=== PATIENT | male | born 1940 | race African-American/Black ===

== ENCOUNTER 2017-06-26 06:49 | Emergency (ER) | payer MEDICARE, MEDICAID ==
[~2017-06-26] VITALS: Ht 167.6 cm; Wt 68.2 kg
[~2017-06-26 06:49] MED LIST: CLOP75 PO; ENAL20TA PO; PHEN100 PO; ZOCO40TA PO
[2017-06-26 06:54] VITALS: BP 145/78; PULSE 79; RESP 14; TEMP 98.6; O2SAT 99
--- NOTE | 2017-06-26 07:06 | PD ---
HPI Chief Complaint: Seizure Time Seen by Provider: 06:55 Travel History International Travel<30 days: No Contact w/Intl Traveler<30days: No Traveled to known affect area: No History of Present Illness HPI 76yo M with PMH of seizure disorder on dilantin presents to the ED with c/o seizure last night. Pt is noncompliant with his dilantin and sometimes takes it and sometimes does not. His gave him dilantin after the seizure last night. Denies any fever, chest pain, sob, n/v, abdominal pain, focal weakness or numbness or tongue biting. Pt had a seizure while in bed. PFSH Past Medical History Hx Anticoagulant Therapy: Yes Blood Disorders: No Heart Rhythm Problems: No Cancer: No Cardiovascular Problems: Yes (HTN) High Cholesterol: Yes Chest Pain: Yes Cerebrovascular Accident: Yes Coronary Artery Disease: Yes Diminished Hearing: No Endocrine: No Gastrointestinal Disorders: Yes GERD: Yes Genitourinary: No Hypertension: Yes Immune Disorder: No Musculoskeletal: No Neurologic: Yes (STROKE 2006) Psychiatric: No Reproductive: No Respiratory: Yes Immunizations Current: No Seizures: Yes Past Surgical History AICD: No Arteriovenous Shunt: No Insulin Pump: No Joint Replacement: No Pacemaker: No Social History Alcohol Use: Yes (3-6 BEER/DAY) Tobacco Use: No Substance Use: No Allergies-Medications (Allergen,Severity, Reaction): Coded Allergies: No Known Allergies (Verified Adverse Reaction, Unknown, 06/26/17) Reported Meds & Prescriptions Reported Meds & Active Scripts Active Reported Zocor (Simvastatin) 40 Mg Tab 40 Mg PO DAILY Dilantin (Phenytoin Extended) 100 Mg Cap 200 Mg PO BID Enalapril (Enalapril Maleate) 20 Mg Tab 20 Mg PO DAILY Plavix (Clopidogrel Bisulfate) 75 Mg Tab 75 Mg PO DAILY Review of Systems Except as stated in HPI: all other systems reviewed are Neg Physical Exam Narrative GENERAL: 76yo M not in distress. SKIN: Focused skin assessment warm/dry. HEAD: Atraumatic. Normocephalic. EYES: Pupils equal and round. EOMI. ENT: No nasal bleeding or discharge. Mucous membranes pink and moist. NECK: Trachea midline. No JVD. No midline cervical spine ttp. CARDIOVASCULAR: Regular rate and rhythm. No murmur appreciated. RESPIRATORY: No accessory muscle use. Clear to auscultation. Breath sounds equal bilaterally. GASTROINTESTINAL: Abdomen soft, non-tender, nondistended. MUSCULOSKELETAL: No obvious deformities. No clubbing. No cyanosis. No edema. NEUROLOGICAL: Awake and alert. No obvious cranial nerve deficits. Motor grossly within normal limits. Normal speech. PSYCHIATRIC: Appropriate mood and affect; insight and judgment normal. Data Data Last Documented VS Vital Signs Date Time Temp Pulse Resp B/P (MAP) Pulse Ox O2 Delivery O2 Flow Rate FiO2 06/26/17 07:02 78 97 Room Air 06/26/17 06:54 98.6 14 145/78 (100) Orders Orders Complete Blood Count With Diff (06/26/17 07:02) Basic Metabolic Panel (Bmp) (06/26/17 07:02) Phenytoin (Dilantin) (06/26/17 07:02) Magnesium (Mg) (06/26/17 07:10) Phenytoin (Dilantin) (06/26/17 08:30) Labs Laboratory Tests Test 06/26/17 07:10 White Blood Count 6.0 TH/MM3 Red Blood Count 4.39 MIL/MM3 Hemoglobin 12.9 GM/DL Hematocrit 40.9 % Mean Corpuscular Volume 93.2 FL Mean Corpuscular Hemoglobin 29.4 PG Mean Corpuscular Hemoglobin Concent 31.5 % Red Cell Distribution Width 12.2 % Platelet Count 211 TH/MM3 Mean Platelet Volume 8.5 FL Neutrophils (%) (Auto) 46.4 % Lymphocytes (%) (Auto) 40.7 % Monocytes (%) (Auto) 7.0 % Eosinophils (%) (Auto) 5.0 % Basophils (%) (Auto) 0.9 % Neutrophils # (Auto) 2.8 TH/MM3 Lymphocytes # (Auto) 2.4 TH/MM3 Monocytes # (Auto) 0.4 TH/MM3 Eosinophils # (Auto) 0.3 TH/MM3 Basophils # (Auto) 0.1 TH/MM3 CBC Comment DIFF FINAL Differential Comment Blood Urea Nitrogen 21 MG/DL Creatinine 1.10 MG/DL Random Glucose 91 MG/DL Calcium Level 8.6 MG/DL Magnesium Level 2.0 MG/DL Sodium Level 136 MEQ/L Potassium Level 4.5 MEQ/L Chloride Level 103 MEQ/L Carbon Dioxide Level 24.7 MEQ/L Anion Gap 8 MEQ/L Estimat Glomerular Filtration Rate 79 ML/MIN Phenytoin (Dilantin) Level 9.1 MCG/ML [facility] Medical Decision Making Medical Screen Exam Complete: Yes Emergency Medical Condition: Yes Differential Diagnosis Seizure secondary to noncompliance vs. infection vs. electrolyte abnormalities Narrative Course 76yo M with seizure disorder with frequent visits for seizure secondary to noncompliance with medications here with another episode of seizure. Pt's came and said he had a seizure that lasted about 1 minute at midnight so she gave him 200mg of dilantin and he was at baseline. However, said he had another seizure at 6am this morning so called [facility]. Denies any head trauma in either episodes and is back at his baseline. Pt admits to not being compliant and did not take his normal dilatin yesterday morning. He is suppose to take 200mg in AM and 200mg in PM. Labs reviewed, no leukocytosis. Magnesium normal. Dilantin level is low at 9.1. Pt given 200mg of dilantin PO here. Pt has been observed in the ED without any seizure. Pt has been back at baseline and denies any complaint. His is at bedside and will accompany him home. Said Dr. Reyes is his neurologist and he has not seen him in quite a while. States he has his dilantin at home and just forgot to take them. Return precautions given. Diagnosis Primary Impression: Seizure Referrals: Yeison Reyes MD call for appointment Patient Instructions: General Instructions Departure Forms: Tests/Procedures Additional Instructions: Please follow up with Dr. Reyes in 2-3 days. Return to the ED if symptoms worsen. Med/Other Pt SpecificInfo: No Change to Meds Disposition: 01 DISCHARGE HOME Condition: Stable Yadi Senior DO Jun 26, 2017 07:06
[2017-06-26] MEDS ORDERED: PLAV75TA29 PO (07:09)
[2017-06-26] MEDS ORDERED: ZOCO40TA PO (07:09)
[2017-06-26] MEDS ORDERED: ENAL20TA PO (07:09)
[2017-06-26] MEDS ORDERED: DILA100C PO (07:09)
[2017-06-26 07:27] LABS: AUTOMATED NEUTROPHIL # 2.8 TH/MM3 (1.8-7.7); BASOPHIL # 0.1 TH/MM3 (0-0.2); BASOPHIL % 0.9 % (0.0-2.0); EOSINOPHIL # 0.3 TH/MM3 (0-0.4); HEMATOCRIT 40.9 % (39.0-51.0); HEMO FLAGS DIFF FINAL; LYMPH % 40.7 % (9.0-44.0); LYMPHOCYTE # 2.4 TH/MM3 (1.0-4.8); MEAN CELL VOLUME 93.2 FL (80.0-100.0); MEAN CORPUSCULAR HEMOGLOBIN 29.4 PG (27.0-34.0); MEAN CORPUSCULAR HGB CONC 31.5 % (32.0-36.0); NEUT % 46.4 % (16.0-70.0); PLATELET COUNT 211 TH/MM3 (150-450); RED BLOOD COUNT 4.39 MIL/MM3 (4.50-5.90); RED CELL DISTRIBUTION WIDTH 12.2 % (11.6-17.2)
[2017-06-26 07:38] LABS: POTASSIUM 4.5 MEQ/L (3.5-5.1)
[2017-06-26 07:40] LABS: BICARBONATE 24.7 MEQ/L (21.0-32.0)
[2017-06-26] MEDS ORDERED: PHENYTOIN SODIUM 100 MG CAP PO ONE (08:30)
[2017-06-26 08:37] VITALS: BP 152/81; PULSE 64; RESP 16; O2SAT 99
== END 2017-06-26 08:56 | disposition home or self-care (01) ==
LOC: PHED 06:49
DX: G40.909 Epilepsy, unspecified, not intractable, without status epilepticus (principal); I10 Essential (primary) hypertension; I25.10 Atherosclerotic heart disease of native coronary artery without angina pectoris; Z79.899 Other long term (current) drug therapy
CPT/HCPCS: 80048; 80185; 83735; 85025; 99283

== ENCOUNTER 2018-05-01 14:56 | Observation (INO) ==
--- NOTE | 2018-05-01 15:11 | CT ---
EXAM DATE: 05/01/2018 3:05 PM EDT AGE/SEX: 77 years / Male INDICATIONS: Stroke alert. Right sided upper and lower extremity weakness. Facial droop. CLINICAL DATA: This is the patient's initial encounter. Patient reports that signs and symptoms have been present for 1 day and indicates a pain score of 0/10. MEDICAL/SURGICAL HISTORY: None. . Seizures. RADIATION DOSE: 59.41 CTDI (mGy) COMPARISON: [facility], CT BRAIN W/O CONTRAST, 06/27/2015. . TECHNIQUE: CT of the head without contrast. Using automated exposure control and adjustment of the mA and/or kV according to patient size, radiation dose was kept as low as reasonably achievable to ob tain optimal diagnostic quality images. DICOM format image data is available electronically for revi ew and comparison. FINDINGS: No signs of acute infarct, hemorrhage or mass. Patchy periventricular white matter disease is again s een and stable compared to 2015 exam. There are no fractures. Ventricles and cisterns are of normal s ize and configuration. CONCLUSION: 1. Stable appearance of the brain. No acute findings. Report was called by [Dr. Reed to Dr. King at 3:06 PM on May 01, 2018. ] Electronically signed by: Estiven Reed MD 05/01/2018 3:10 PM EDT
--- NOTE | 2018-05-01 15:27 | ED ---
HPI General Chief complaint: Stroke Alert Stated complaint: stroke alert Time Seen by Provider: 05/01/18 15:10 History of Present Illness HPI narrative: Patient is a 77 year old male last seen normal around 2 hours ago presents to the ER for evaluation of altered mental status. Patient has a history of stroke and seizure. Patient first noticed by his significant other about an hour ago having trouble speaking. She states she was sitting next to him on the couch and that's when she noticed it. She states that he did not have any seizure disorder. Otherwise he had been well before today. No chest pain, no fever, no cough, no congestion. Related Data Home Medications Medication Instructions Recorded Confirmed clopidogrel 75 mg PO DAILY 05/01/18 05/01/18 enalapril maleate 20 mg PO DAILY 05/01/18 05/01/18 montelukast 10 mg PO HS 05/01/18 05/01/18 phenytoin 200 mg PO BID 05/01/18 05/01/18 simvastatin 40 mg PO DAILY 05/01/18 05/01/18 Allergies Allergy/AdvReac Type Severity Reaction Status Date / Time No Known Allergies Allergy Unverified 05/01/18 15:03 Review of Systems ROS: all other systems reviewed are negative [facility] Medical History Medical History History of CVA (cerebrovascular accident) (Acute) Hx of tonic-clonic seizures (Acute) Hx of primary hypertension (Acute) History of high cholesterol (Acute) Surgical History Surgical History No history of previous surgery (Acute) Social History Social History Substance History: No History of Abuse Second Hand Smoke Exposure: No Smoking Status: Never smoker How Often Do You Have a Drink Containing Alcohol: 4 or more times a week Recent Travel in [facility] within the Last 8 Weeks: No Recent Out of Country Travel within the Last 8 Weeks: No Exam Narrative Exam Narrative: GENERAL: WD/WN in nad. SKIN: Focused skin assessment warm/dry. HEAD: Atraumatic. Normocephalic. EYES: Pupils equal and round. No scleral icterus. No injection or drainage. ENT: No nasal bleeding or discharge. Mucous membranes pink and moist. NECK: Trachea midline. No JVD. CARDIOVASCULAR: Regular rate and rhythm. No murmur appreciated. RESPIRATORY: No accessory muscle use. Clear to auscultation. Breath sounds equal bilaterally. GASTROINTESTINAL: Abdomen soft, non-tender, nondistended. Hepatic and splenic margins not palpable. MUSCULOSKELETAL: No obvious deformities. No clubbing. No cyanosis. No edema. NEUROLOGICAL: Awake and alert. Patient's major deficit is speech, dysarthric and dysphasic. Patient has possible small loss of strength in the right sided extremities upper and lower. Probably 4/5 strength. Total NIH is 5. PSYCHIATRIC: Appropriate mood and affect; insight and judgment normal. Course Initial Documented Vital Signs Temperature 98.2 F 05/01/18 15:00 Pulse Rate 88 05/01/18 15:00 Respiratory Rate 16 05/01/18 15:00 Blood Pressure 176/96 H 05/01/18 15:00 Pulse Oximetry 95 05/01/18 15:00 Last Documented Vital Signs Temperature 98.2 F 05/01/18 15:00 Pulse Rate 72 05/01/18 17:43 Respiratory Rate 16 05/01/18 17:43 Blood Pressure 149/70 H 05/01/18 17:43 Pulse Oximetry 95 05/01/18 17:43 Critical Care Time Critical Care Time: Yes Total Critical Care Time: 35 Attestation: Critical care time with this patient is 35 mins. Discussed with 3 physicians, family, nurses. Billable procedure time was not included in this time. Medical Decision Making MDM Narrative Medical decision making narrative: Patient taken directly to CT on arrival. He has no labs, no VS. Taken back to ER for further evaluation. Patient is very dysarthric and somewhat aphasic as well. Unable to demonstrate insight or judgement and unable to make his own decisions. Patient's "" arrives abbey cheek. She is waivering on the decision for TPA. She cannot give me any other family members who can consent for him. She is not his legal nor does she have POA. She can therefore not make decision for him. She states that his speech is improving anyways. CT head negative. Will be going back for CTA. Then transport to [facility]. Patient difficult IV stick, i have started US guided IV in the right AC. There was some delay for creatinine in this patient but ultimately went for CTA which should no acute occlusion. He was seen by Dr. Reaves and reevaluated by me during CTA and has now resolved. Initially plan was to go to [facility] incase there was occlusion so that he could have intervention if neccessary. However now that CTA negative and patient symptoms resolved it was felt by myself and Dr. Lipscomb that he could be downgraded to floor at [facility] for TIA. Medical Screen Exam Complete: Yes Emergency Medical Condition: Yes Lab Data Result diagrams: 05/01/18 15:28 05/01/18 15:28 Lab Results 05/01/18 05/01/18 05/01/18 Range/Units 15:25 15:28 15:28 CBC w Diff Auto diff final WBC 5.5 (4.0-11.0) th/mm3 RBC 3.82 L (4.50-5.90) mil/mm3 Hgb 12.3 L (13.0-17.0) gm/dL Hct 36.3 L (39.0-51.0) % MCV 95.0 (80.0-100.0) fL MCH 32.2 (27.0-34.0) pg MCHC 33.9 (32.0-36.0) % RDW 12.4 (11.6-17.2) % Plt Count 167 (150-450) th/mm3 MPV 8.3 (7.0-11.0) fL Neut % (Auto) 54.4 (16.0-70.0) % Lymph % (Auto) 33.6 (9.0-44.0) % [place] % (Auto) 8.3 H (0.0-8.0) % Eos % (Auto) 2.8 (0.0-4.0) % Baso % (Auto) 0.9 (0.0-2.0) % Neut # (Auto) 3.0 (1.8-7.7) th/mm3 Lymph # (Auto) 1.8 (1.0-4.8) th/mm3 [place] # (Auto) 0.5 (0.0-0.9) th/mm3 Eos # (Auto) 0.2 (0.0-0.4) th/mm3 Baso # (Auto) 0.0 (0.0-0.2) th/mm3 WBC Differential . Differential Comment . PT (9.8-11.6) sec INR Ratio APTT (24.3-30.1) sec Sodium (136-145) meq/L Potassium (3.5-5.1) meq/L Chloride (98-107) meq/L Carbon Dioxide (21.0-32.0) meq/L Anion Gap (5-15) meq/L BUN (7-18) mg/dL Creatinine (0.60-1.30) mg/dL Estimated GFR (>89) mL/min Random Glucose (74-106) mg/dL Calcium (8.5-10.1) mg/dL Total Bilirubin (0.2-1.0) mg/dL AST (15-37) U/L ALT (12-78) U/L Alkaline Phosphatase (45-117) U/L Troponin I (0.02-0.05) ng/mL Total Protein (6.4-8.2) g/dL Albumin (3.4-5.0) g/dL TSH Cancelled Urine Color (Yellw/Straw) Urine Clarity (Clear) Urine pH (5.0-8.5) Ur Specific [place] (1.002-1.035) Urine Protein (Neg-Trace) mg/dL Urine Glucose (UA) (Negative) mg/dL Urine Ketones (Negative) mg/dL Urine Occult Blood (Negative) Urine Nitrate (Negative) Urine Bilirubin (Negative) Urine Urobilinogen (Less than 2) mg/dL Ur Leukocyte Esterase (Negative) Urine RBC (0-3) /hpf Urine WBC (0-5) /hpf Ur Squamous Epith Cells (0-5) /hpf Micro UA Comment Ur Microscopic Review Urine Culture Comments Phenytoin 13.5 (10.0-20.0) mcg/mL Blood Type A Positive Blood Type Recheck Required Antibody Screen Negative 05/01/18 05/01/18 05/01/18 Range/Units 15:28 15:28 17:30 CBC w Diff WBC (4.0-11.0) th/mm3 RBC (4.50-5.90) mil/mm3 Hgb (13.0-17.0) gm/dL Hct (39.0-51.0) % MCV (80.0-100.0) fL MCH (27.0-34.0) pg MCHC (32.0-36.0) % RDW (11.6-17.2) % Plt Count (150-450) th/mm3 MPV (7.0-11.0) fL Neut % (Auto) (16.0-70.0) % Lymph % (Auto) (9.0-44.0) % Berks % (Auto) (0.0-8.0) % Eos % (Auto) (0.0-4.0) % Baso % (Auto) (0.0-2.0) % Neut # (Auto) (1.8-7.7) th/mm3 Lymph # (Auto) (1.0-4.8) th/mm3 [place] # (Auto) (0.0-0.9) th/mm3 Eos # (Auto) (0.0-0.4) th/mm3 Baso # (Auto) (0.0-0.2) th/mm3 WBC Differential Differential Comment PT 11.4 (9.8-11.6) sec INR 1.1 Ratio APTT 26.2 (24.3-30.1) sec Sodium 137 (136-145) meq/L Potassium 4.1 (3.5-5.1) meq/L Chloride 101 (98-107) meq/L Carbon Dioxide 27.6 (21.0-32.0) meq/L Anion Gap 8 (5-15) meq/L BUN 13 (7-18) mg/dL Creatinine 1.10 (0.60-1.30) mg/dL Estimated GFR 78 L (>89) mL/min Random Glucose 93 (74-106) mg/dL Calcium 8.0 L (8.5-10.1) mg/dL Total Bilirubin 0.2 (0.2-1.0) mg/dL AST 15 (15-37) U/L ALT 19 (12-78) U/L Alkaline Phosphatase 85 (45-117) U/L Troponin I Less than 0.02 L (0.02-0.05) ng/mL Total Protein 8.0 (6.4-8.2) g/dL Albumin 3.3 L (3.4-5.0) g/dL TSH 1.720 Urine Color Yellow (Yellw/Straw) Urine Clarity Clear (Clear) Urine pH 6.0 (5.0-8.5) Ur Specific [place] Less/equal 1.005 (1.002-1.035) Urine Protein Negative (Neg-Trace) mg/dL Urine Glucose (UA) Negative (Negative) mg/dL Urine Ketones Negative (Negative) mg/dL Urine Occult Blood Trace (Negative) Urine Nitrate Negative (Negative) Urine Bilirubin Negative (Negative) Urine Urobilinogen 1.0 (Less than 2) mg/dL Ur Leukocyte Esterase Negative (Negative) Urine RBC 0-3 (0-3) /hpf Urine WBC 0-5 (0-5) /hpf Ur Squamous Epith Cells 0-5 (0-5) /hpf Micro UA Comment Culture not ind Ur Microscopic Review Microscopic reviewed Urine Culture Comments Culture not ind Phenytoin (10.0-20.0) mcg/mL Blood Type Blood Type Recheck Antibody Screen Imaging Data Radiologist's impression: Chest X-Ray 05/01/18 14:57 CONCLUSION: No acute cardiopulmonary disease. Head CT 05/01/18 14:57 CONCLUSION: 1. Stable appearance of the brain. No acute findings. Report was called by [Dr. Reed to Dr. King at 3:06 PM on May 01, 2018. ] Head CTA 05/01/18 14:57 CONCLUSION: 1. There is nonvisualization of the left anterior communicating artery. No evidence of aneurysm or dissection. The remainder of the vasculature appears normal. Neck CTA 05/01/18 14:57 CONCLUSION: 1. There is minimal calcific plaquing of the bilateral carotid arteries without evidence for hemodynamically significant stenosis or occlusion. Discharge Plan Discharge Disposition Patient Disposition: 30 Still Patient Discharge Details Diagnosis: Brain TIA Physicians Team ED Provider: Enrique King Primary Care Provider: Man Sanchez Status ED Status: Left Department Discharge Information Discharge Date/Time: 05/01/18 18:19
[2018-05-01 15:39] LABS: Baso % (Auto) 0.9 % (0.0-2.0); Eos # (Auto) 0.2 th/mm3 (0.0-0.4); Eos % (Auto) 2.8 % (0.0-4.0); Hematocrit 36.3 % (39.0-51.0); Hemoglobin 12.3 gm/dL (13.0-17.0); Lymph # (Auto) 1.8 th/mm3 (1.0-4.8); Lymph % (Auto) 33.6 % (9.0-44.0); Mean Corpuscular HGB Conc 33.9 % (32.0-36.0); Mean Corpuscular Hemoglobin 32.2 pg (27.0-34.0); Mean Platelet Volume 8.3 fL (7.0-11.0); Mono # (Auto) 0.5 th/mm3 (0.0-0.9); Mono % (Auto) 8.3 % (0.0-8.0); Neut % (Auto) 54.4 % (16.0-70.0); Platelet Count 167 th/mm3 (150-450); Red Blood Count 3.82 mil/mm3 (4.50-5.90); Red Cell Distribution Width 12.4 % (11.6-17.2); White Blood Count 5.5 th/mm3 (4.0-11.0)
--- NOTE | 2018-05-01 15:43 | XR ---
EXAM DATE: 05/01/2018 3:38 PM EDT AGE/SEX: 77 years / Male INDICATIONS: Stroke alert. CLINICAL DATA: This is the patient's initial encounter. Patient reports that signs and symptoms have been present for 1 day and indicates a pain score of Nonresponsive. MEDICAL/SURGICAL HISTORY: None. None. COMPARISON: [facility], CHEST PA & LAT, 11/08/2011. . FINDINGS: A single AP view of the chest demonstrates the lungs to be symmetrically aerated without evidence of mass, infiltrate or effusion. Tortuous aorta which is stable. The cardiomediastinal contours are unr emarkable. Osseous structures are intact. Mild scoliotic curvature of the thoracic spine. CONCLUSION: No acute cardiopulmonary disease. Electronically signed by: Tom Silver MD 05/01/2018 3:42 PM EDT
[2018-05-01 15:46] LABS: Chloride 101 meq/L (98-107); Potassium 4.1 meq/L (3.5-5.1); Sodium 137 meq/L (136-145)
[2018-05-01 15:50] LABS: Albumin 3.3 g/dL (3.4-5.0); Anion Gap 8 meq/L (5-15); Blood Urea Nitrogen 13 mg/dL (7-18); Carbon Dioxide 27.6 meq/L (21.0-32.0); Glucose,Random 93 mg/dL (74-106)
[2018-05-01 15:53] LABS: Alanine Aminotransferase 19 U/L (12-78); Aspartate Aminotransferase 15 U/L (15-37); Glomerular Filtration Rate 78 mL/min (>89)
[2018-05-01 15:56] LABS: Alkaline Phosphatase 85 U/L (45-117)
[2018-05-01 16:09] LABS: Activated Partial Thrombo Time 26.2 sec (24.3-30.1); INR 1.1 Ratio; Prothrombin Time 11.4 sec (9.8-11.6)
--- NOTE | 2018-05-01 16:28 | P.CONNEU ---
History of Present Illness Service: Neurology Primary Care Provider: Man Sanchez DO Family Provider: Man Sanchez DO Chief Complaint: Stroke alert History of Present Illness: Pleasant 77-year-old gentleman brought into the ER for mental status changes. Onset approximately 45 minutes prior to arrival to the ER. His partner is at bedside. During his course in the ER is in a stroke scale score went from 5 to is 0. With improvement in symptoms he is not IV TPA candidate. His partner states his normal state of health this morning when abruptly began with confusion difficulty with speech. Had some emesis. He has a history of seizures and admits that he is noncompliant with his Dilantin. He had a similar episode 6 months ago. States he usually clears after several hours or a day. His history of previous trauma and stroke she states which they believe it resulted him in him having seizures. Denies any current headache vertigo visual loss focal weakness or any head or neck trauma or chest pain or dyspnea. Review of Systems All other systems reviewed negative except as stated in HPI PMFSH - History History Provided By: Family Member - Medical History Medical History: Medical History (Last Updated 05/01/18 @ 15:51 by Maribel López RN) History of CVA (cerebrovascular accident) (Acute) Hx of tonic-clonic seizures (Acute) Hx of primary hypertension (Acute) History of high cholesterol (Acute) - Surgical History Surgical History: Surgical History (Last Updated 05/01/18 @ 15:51 by Maribel López RN) No history of previous surgery (Acute) - Tobacco History Second Hand Smoke Exposure: No Smoking Status: Never smoker - Alcohol History How Often Do You Have a Drink Containing Alcohol: 4 or more times a week - Substance Use History Substance History: No History of Abuse - Travel History Recent Travel in the [place] Within the Last 8 Weeks: No Recent Travel Out of the Country Within the Last 8 Weeks: No - Immunization History Tetanus Immunization: <5 Years Hx Influenza Vaccine This Season: No Medications and Allergies Active Medications: Active Medications Sodium Chloride (Ns Inj) 1,000 mls @ 70 mls/hr IV.CONT .[id number] BOBBY Sodium Chloride (Ns Flush) 2 ml IV.FLUSH PRN PRN PRN Reason: FLUSH AFTER USING IV ACCESS Allergies Allergy/AdvReac Type Severity Reaction Status Date / Time No Known Allergies Allergy Unverified 05/01/18 15:03 Home Medications Medication Instructions Recorded Confirmed Type clopidogrel 75 mg PO DAILY 05/01/18 05/01/18 History enalapril maleate 20 mg PO DAILY 05/01/18 05/01/18 History montelukast 10 mg PO HS 05/01/18 05/01/18 History phenytoin 200 mg PO BID 05/01/18 05/01/18 History simvastatin 40 mg PO DAILY 05/01/18 05/01/18 History Exam Vital signs: Vital Signs 05/01/18 15:00 05/01/18 15:43 05/01/18 15:49 Temperature 98.2 F Pulse Rate 88 Respiratory Rate 16 Blood Pressure 176/96 H Pulse Oximetry 95 96 98 05/01/18 15:59 Temperature Pulse Rate 74 Respiratory Rate 16 Blood Pressure 149/79 H Pulse Oximetry 100 Intake & Output 04/30/18 05/01/18 05/01/18 18:59 06:59 18:59 Weight 73.2 kg Narrative: GENERAL: in NAD, SKIN: Warm and dry. HEAD: Atraumatic. Normocephalic. EYES: Pupils equal and round. No scleral icterus. ENT: No nasal bleeding or discharge. Mucous membranes pink and moist. NECK: Trachea midline. No JVD. CARDIOVASCULAR: Regular rate and rhythm. RESPIRATORY: No accessory muscle use. Clear to auscultation. Breath sounds equal bilaterally. GASTROINTESTINAL: Abdomen soft, non-tender, nondistended. MUSCULOSKELETAL: Extremities without clubbing, cyanosis, or edema. No obvious deformities. NEUROLOGICAL: Mildly drowsy but able to sustain attention no aphasia, fluent articulate, able name simple objects, recognizes his partner no facial asymmetry , OU 3-2mm, eomi, VFF, No drift, Motor grossly within normal limits. Five out of 5 muscle strength in the arms and legs. Tone normal in all 4 limbs, Sensory normal in all 4 extermities to pin, msr 1-2+ sym, no clonus, planterflexor, gait not assessed secondary fall risk PSYCHIATRIC: Appropriate mood and affect; insight and judgment normal. - Constitutional no acute distress - Routine HEENT Exam Head: Present: normocephalic Eye: Present: EOMI Results - Labs CBC & Chem 7: 05/01/18 15:28 05/01/18 15:28 Labs: Laboratory Results - last 24 hr 05/01/18 05/01/18 05/01/18 15:28 15:28 15:28 CBC w Diff Auto diff final WBC 5.5 RBC 3.82 L Hgb 12.3 L Hct 36.3 L MCV 95.0 MCH 32.2 MCHC 33.9 RDW 12.4 Plt Count 167 MPV 8.3 Neut % (Auto) 54.4 Lymph % (Auto) 33.6 [place] % (Auto) 8.3 H Eos % (Auto) 2.8 Baso % (Auto) 0.9 Neut # (Auto) 3.0 Lymph # (Auto) 1.8 [place] # (Auto) 0.5 Eos # (Auto) 0.2 Baso # (Auto) 0.0 WBC Differential . Differential Comment . PT 11.4 INR 1.1 APTT 26.2 Sodium 137 Potassium 4.1 Chloride 101 Carbon Dioxide 27.6 Anion Gap 8 BUN 13 Creatinine 1.10 Estimated GFR 78 L Random Glucose 93 Calcium 8.0 L Total Bilirubin 0.2 AST 15 ALT 19 Alkaline Phosphatase 85 Troponin I Less than 0.02 L Total Protein 8.0 Albumin 3.3 L TSH 1.720 - Imaging Impressions Chest X-Ray 05/01/18 14:57 CONCLUSION: No acute cardiopulmonary disease. Head CT 05/01/18 14:57 CONCLUSION: 1. Stable appearance of the brain. No acute findings. Report was called by [Dr. Reed to Dr. King at 3:06 PM on May 01, 2018. ] Review/Management - Diagnosis (1) Post-traumatic seizures Code(s): R56.1 - Post traumatic seizures Status: Acute Current Visit: Yes (2) History of CVA (cerebrovascular accident) Code(s): Z86.73 - Personal history of transient ischemic attack (TIA), and cerebral infarction without residual deficits Status: Acute Current Visit: Yes (3) Hx of tonic-clonic seizures Code(s): Z86.69 - Personal history of other diseases of the nervous system and sense organs Status: Acute Current Visit: Yes (4) Hx of primary hypertension Code(s): Z86.79 - Personal history of other diseases of the circulatory system Status: Acute Current Visit: Yes - Review/Management Plan: Probable breakthrough seizure with postictal state Suspect complex partial seizure left temporal lobe in origin Recommendations EEG Follow-up Dilantin level Resume Dilantin Aspirin MRI brain follow-up PT eval DC planning in a.m. if no further symptoms Compliance seizure medications Follow-up with us in the outpatient setting in 1-2 weeks Business card given to patient spouse No driving or operating heavy machinery swimming alone 6 months being seizure spell free
[2018-05-01] MEDS ORDERED: Fosphenytoin Inj 1,000 MGPE in Sodium Chlor 0.9% Inj 50 ML IV.SIG ONE (16:29)
--- NOTE | 2018-05-01 16:36 | CT ---
EXAM DATE: 05/01/2018 4:26 PM EDT AGE/SEX: 77 years / Male INDICATIONS: Stroke alert. Right sided upper and lower extremity weakness. Facial droop. CLINICAL DATA: This is the patient's initial encounter. Patient reports that signs and symptoms have been present for 1 day and indicates a pain score of 0/10. MEDICAL/SURGICAL HISTORY: . Seizures. None. RADIATION DOSE: 42.24 CTDI (mGy) ; Combined studies COMPARISON: [facility], CT HEAD W/O CONTRAST, 05/01/2018. . TECHNIQUE: Volumetric scanning was performed using a multi-row detector CT scanner during bolus infu katherin of 100 ml Visipaque 320 (iodixanol) nonionic water-soluble contrast as a cumulative dose for mu ltiple exams. The data was post processed with a variety of visualization algorithms including full volume maximum intensity projection, multi-planar sliding thin slab reformation, curved planar refor mation, and surface rendering techniques. Using automated exposure control and adjustment of the mA and/or kV according to patient size, radiation dose was kept as low as reasonably achievable to obtai n optimal diagnostic quality images. DICOM format image data is available electronically for review and comparison. FINDINGS: There is excellent visualization of the major intracranial arteries out to the second-order branch ve ssels. There is no evidence for aneurysm, or stenosis. There is nonvisualization of the left anterio r communicating artery and the 2 anterior cerebral arteries appear to originate from the right anteri or communicating artery. No evidence for vascular malformation. CONCLUSION: 1. There is nonvisualization of the left anterior communicating artery. No evidence of aneurysm or d issection. The remainder of the vasculature appears normal. Electronically signed by: Kari Barba MD 05/01/2018 4:35 PM EDT
[2018-05-01] MEDS: Sod Chloride 0.9% Inj 1,000 ML IV.CONT SCH (16:46)
--- NOTE | 2018-05-01 16:46 | CT ---
EXAM DATE: 05/01/2018 4:40 PM EDT AGE/SEX: 77 years / Male INDICATIONS: Stroke alert. Right sided upper and lower extremity weakness. Facial droop. CLINICAL DATA: This is the patient's initial encounter. Patient reports that signs and symptoms have been present for 1 day and indicates a pain score of 0/10. MEDICAL/SURGICAL HISTORY: . Seizures. None. RADIATION DOSE: 42.24 CTDI (mGy) ; Combined studies COMPARISON: [facility], CTA HEAD W CONTRAST W 3D, 05/01/2018. [facility], CT HEAD W/O CONTRAST, 05/01/2018. . TECHNIQUE: Volumetric scanning was performed using a multirow detector CT scanner during bolus infus ion of 100 ml Visipaque 320 (iodixanol) nonionic water-soluble contrast as a cumulative dose for mul tiple exams. The data was postprocessed with a variety of visualization algorithms including full-v olume maximum intensity projection, multiplanar sliding thin-slab reformation, curved-planar reformat ion, and surface-rendering techniques. Using automated exposure control and adjustment of the mA and /or kV according to patient size, radiation dose was kept as low as reasonably achievable to obtain o ptimal diagnostic quality images. DICOM format image data is available electronically for review and comparison. Percent stenosis is calculated using the diameter of the stenotic region over the diameter of the nor mal distal internal carotid artery. FINDINGS: Aortic Arch: There is a three-vessel origin of the great vessels from the aorta. No evidence of ost ial narrowing Right Carotid: The common carotid artery is intact. The carotid bulb has a normal configuration wit hout ulceration or narrowing. The internal carotid artery lumen is smooth without stenosis. The ext ernal carotid artery is intact. Left Carotid: The common carotid artery is intact. The carotid bulb has a normal configuration with out ulceration or narrowing. The internal carotid artery lumen is smooth without stenosis. The exte rnal carotid artery is intact. Vertebrals: The vertebral arteries have a symmetric diameter. No stenotic lesions are seen. Basilar artery is diminutive in caliber. CONCLUSION: 1. There is minimal calcific plaquing of the bilateral carotid arteries without evidence for hemodyn amically significant stenosis or occlusion. Electronically signed by: Estiven Reed MD 05/01/2018 4:45 PM EDT
[2018-05-01] MEDS ORDERED: Acetaminophen 325 MG Tablet PO PRN (17:02)
[2018-05-01] MEDS ORDERED: Bisacodyl 10 MG Supp RECTAL PRN (17:02)
[2018-05-01] MEDS: Aspirin 325 MG Tablet PO SCH (17:10)
[2018-05-01 17:32] LABS: Phenytoin (Dilantin) 13.5 mcg/mL (10.0-20.0)
[2018-05-01 17:41] LABS: Bilirubin,Urine Negative (Negative); Clarity,Urine Clear (Clear); Color,Urine Yellow (Yellw/Straw); Glucose,Urine (UA) Negative (Negative); Leukocyte Esterase,Urine Negative (Negative); Nitrite,Urine Negative (Negative); Specific Gravity,Urine Less/Equal 1.005 (1.002-1.035)
[2018-05-01 17:47] LABS: RBC,Urine 0-3 /hpf (0-3)
[2018-05-01 17:48] LABS: Squamous Epithelial Cell,Urine 0-5 /hpf (0-5); WBC,Urine 0-5 /hpf (0-5)
--- NOTE | 2018-05-01 19:24 | P.HP ---
History of Present Illness Service: Hospitalist Primary Care Physician: Man Sanchez DO Chief Complaint: Stroke alert History of Present Illness: Mr. Garcia is a pleasant 77 year old male who was brought to the hospital as a stroke alert. Approximately two hours prior to arrival, he was in his normal state. Approximately, an hour prior to ED arrival, his significant other noticed patient's speech difficulty. He had some confusion as well. By the time he arrived to the hospital, his symptoms resolved. Neurology was consulted. TPA was not administered. Patient denies any chest pain, shortness of breath, fever , chills. No changes in bowel or bladder habits. PMH: Seizure disorder, CVA, HTN PSH: No previous major surgery Social history: Denies using tobacco, alcohol or illicit drugs. Family history: No history of Alzheimer's or Parkinson's. Review of Systems All other systems reviewed negative except as stated in HPI [facility] - History History Provided By: Family Member - Medical History Medical History: Medical History (Last Updated 05/01/18 @ 15:51 by Maribel López RN) History of CVA (cerebrovascular accident) (Acute) Hx of tonic-clonic seizures (Acute) Hx of primary hypertension (Acute) History of high cholesterol (Acute) - Surgical History Surgical History: Surgical History (Last Updated 05/01/18 @ 15:51 by Maribel López RN) No history of previous surgery (Acute) - Tobacco History Second Hand Smoke Exposure: No Smoking Status: Never smoker - Alcohol History How Often Do You Have a Drink Containing Alcohol: 4 or more times a week - Substance Use History Substance History: No History of Abuse - Travel History Recent Travel in the [place] Within the Last 8 Weeks: No Recent Travel Out of the Country Within the Last 8 Weeks: No - Immunization History Tetanus Immunization: <5 Years Hx Influenza Vaccine This Season: No Medications and Allergies Active Medications: Active Medications Acetaminophen (Tylenol) 650 mg PO Q4H PRN PRN Reason: Headache, fever, pain 1-4 Al Hydroxide/Mg Hydroxide (Milk Of Magnesia Liq) 30 ml PO Q12H PRN PRN Reason: Mild Constipation Aspirin (Aspirin) 325 mg PO DAILY BOBBY Last Admin: 05/01/18 17:10 Dose: 325 mg Atorvastatin Calcium (Lipitor) 40 mg PO HS BOBBY Bisacodyl (Dulcolax Supp) 10 mg RECTAL DAILY PRN PRN Reason: SEVERE CONSITIPATION Heparin Sodium (Porcine) (Heparin Inj) 5,000 units SQ Q12HR BOBBY Sodium Chloride (Ns Inj) 1,000 mls @ 70 mls/hr IV.CONT .[id number] BOBBY Last Admin: 05/01/18 16:46 Dose: 70 mls/hr Fosphenytoin Sodium 200 mgpe/ (Sodium Chloride) 54 mls @ 216 mls/hr IV.SIG Q12HR [facility] Lactulose (Lactulose Liq) 30 ml PO DAILY PRN PRN Reason: SEVERE CONSITIPATION Ondansetron HCl (Zofran Inj) 4 mg IV.PUSH Q6H PRN PRN Reason: NAUSEA OR VOMITING Sennosides (Senokot) 17.2 mg PO Q12H PRN PRN Reason: Moderate Constipation Sodium Chloride (Ns Flush) 2 ml IV.FLUSH PRN PRN PRN Reason: FLUSH AFTER USING IV ACCESS Allergies Allergy/AdvReac Type Severity Reaction Status Date / Time No Known Allergies Allergy Unverified 05/01/18 15:03 Home Medications Medication Instructions Recorded Confirmed Type clopidogrel 75 mg PO DAILY 05/01/18 05/01/18 History enalapril maleate 20 mg PO DAILY 05/01/18 05/01/18 History montelukast 10 mg PO HS 05/01/18 05/01/18 History phenytoin 200 mg PO BID 05/01/18 05/01/18 History simvastatin 40 mg PO DAILY 05/01/18 05/01/18 History Exam Vital signs: Vital Signs 05/01/18 15:00 05/01/18 15:43 05/01/18 15:49 Temperature 98.2 F Pulse Rate 88 Respiratory Rate 16 Blood Pressure 176/96 H Pulse Oximetry 95 96 98 05/01/18 15:59 05/01/18 16:31 05/01/18 17:43 Temperature Pulse Rate 74 72 Respiratory Rate 16 16 Blood Pressure 149/79 H 149/70 H Pulse Oximetry 100 100 95 Intake & Output 05/01/18 05/01/18 05/02/18 06:59 18:59 06:59 Intake Total 100 / 100 Balance 100 / 100 Weight 73.2 kg Intake: IV 100 / 100 Cerebyx Inj 1,000 MGPE In NS 100 / 100 Inj 50 ML @ 280 mls/hr IV.SIG ONCE ONE Rx#:[id number] Narrative: GENERAL: This is a well-nourished, well-developed patient, in no apparent distress. SKIN: No rashes, ecchymoses or lesions. Warm and dry. HEAD: Atraumatic. Normocephalic. No temporal or scalp tenderness. EYES: Pupils equal round and reactive. No injection or drainage. ENT: Nose without bleeding, purulent drainage or septal hematoma. Airway patent. NECK: Trachea midline. No lymphadenopathy. Supple, nontender, no meningeal signs. CARDIOVASCULAR: Regular rate and rhythm without murmurs, gallops, or rubs. No JVD. RESPIRATORY: Clear to auscultation. Breath sounds equal bilaterally. No wheezes , rales, or rhonchi. GASTROINTESTINAL: Abdomen soft, non-tender, nondistended. No guarding. MUSCULOSKELETAL: Extremities without clubbing, cyanosis, or edema. NEUROLOGICAL: Awake and alert. Cranial nerves II through XII intact. No focal neurological deficits. Normal speech. Results - Labs CBC & Chem 7: 05/01/18 15:28 05/01/18 15:28 Labs: Laboratory Results - last 24 hr 05/01/18 05/01/18 05/01/18 15:25 15:28 15:28 CBC w Diff Auto diff final WBC 5.5 RBC 3.82 L Hgb 12.3 L Hct 36.3 L MCV 95.0 MCH 32.2 MCHC 33.9 RDW 12.4 Plt Count 167 MPV 8.3 Neut % (Auto) 54.4 Lymph % (Auto) 33.6 [place] % (Auto) 8.3 H Eos % (Auto) 2.8 Baso % (Auto) 0.9 Neut # (Auto) 3.0 Lymph # (Auto) 1.8 [place] # (Auto) 0.5 Eos # (Auto) 0.2 Baso # (Auto) 0.0 WBC Differential . Differential Comment . PT INR APTT Sodium Potassium Chloride Carbon Dioxide Anion Gap BUN Creatinine Estimated GFR Random Glucose Calcium Total Bilirubin AST ALT Alkaline Phosphatase Troponin I Total Protein Albumin TSH Cancelled Urine Color Urine Clarity Urine pH Ur Specific [place] Urine Protein Urine Glucose (UA) Urine Ketones Urine Occult Blood Urine Nitrate Urine Bilirubin Urine Urobilinogen Ur Leukocyte Esterase Urine RBC Urine WBC Ur Squamous Epith Cells Micro UA Comment Ur Microscopic Review Urine Culture Comments Phenytoin 13.5 Blood Type A Positive Blood Type Recheck Required Antibody Screen Negative 05/01/18 05/01/18 05/01/18 15:28 15:28 17:30 CBC w Diff WBC RBC Hgb Hct MCV MCH MCHC RDW Plt Count MPV Neut % (Auto) Lymph % (Auto) [place] % (Auto) Eos % (Auto) Baso % (Auto) Neut # (Auto) Lymph # (Auto) [place] # (Auto) Eos # (Auto) Baso # (Auto) WBC Differential Differential Comment PT 11.4 INR 1.1 APTT 26.2 Sodium 137 Potassium 4.1 Chloride 101 Carbon Dioxide 27.6 Anion Gap 8 BUN 13 Creatinine 1.10 Estimated GFR 78 L Random Glucose 93 Calcium 8.0 L Total Bilirubin 0.2 AST 15 ALT 19 Alkaline Phosphatase 85 Troponin I Less than 0.02 L Total Protein 8.0 Albumin 3.3 L TSH 1.720 Urine Color Yellow Urine Clarity Clear Urine pH 6.0 Ur Specific [place] Less/equal 1.005 Urine Protein Negative Urine Glucose (UA) Negative Urine Ketones Negative Urine Occult Blood Trace Urine Nitrate Negative Urine Bilirubin Negative Urine Urobilinogen 1.0 Ur Leukocyte Esterase Negative Urine RBC 0-3 Urine WBC 0-5 Ur Squamous Epith Cells 0-5 Micro UA Comment Culture not ind Ur Microscopic Review Microscopic reviewed Urine Culture Comments Culture not ind Phenytoin Blood Type Blood Type Recheck Antibody Screen - Imaging Impressions Chest X-Ray 05/01/18 14:57 CONCLUSION: No acute cardiopulmonary disease. Head CT 05/01/18 14:57 CONCLUSION: 1. Stable appearance of the brain. No acute findings. Report was called by [Dr. Reed to Dr. King at 3:06 PM on May 01, 2018. ] Head CTA 05/01/18 14:57 CONCLUSION: 1. There is nonvisualization of the left anterior communicating artery. No evidence of aneurysm or dissection. The remainder of the vasculature appears normal. Neck CTA 05/01/18 14:57 CONCLUSION: 1. There is minimal calcific plaquing of the bilateral carotid arteries without evidence for hemodynamically significant stenosis or occlusion. Caprini VTE Risk Assessment Caprini VTE Risk Assessment: No/Low Risk (score <= 1) Caprini Risk Assessment Model: Point Value = 1 Point Value = 2 Point Value = 3 Point Value = 5 Age 41-60 Minor surgery BMI > 25 kg/m2 Swollen legs Varicose veins or History of unexplained or recurrent spontaneous Oral contraceptives or hormone replacement Sepsis (< 1 month) Serious lung disease, including pneumonia (< 1 month) Abnormal pulmonary function Acute myocardial infarction Congestive heart failure (< 1 month) History of inflammatory bowel disease Medical patient at bed rest Age 61-74 Arthroscopic surgery Major open surgery (> 45 min) Laparoscopic surgery (> 45 min) Malignancy Confined to bed (> 72 hours) Immobilizing plaster cast Central venous access Age >= 75 History of VTE Family history of VTE Factor V Leiden Prothrombin [id number] Lupus anticoagulant Anticardiolipin antibodies Elevated serum homocysteine Heparin-induced thrombocytopenia Other congenital or acquired thrombophilia Stroke (< 1 month) Elective arthroplasty Hip, pelvis, or leg fracture Acute spinal cord injury (< 1 month) Prophylaxis Regimen: Total Risk Factor Score Risk Level Prophylaxis Regimen 0-1 Low Early ambulation 2 Moderate Order ONE of the following: *Sequential Compression Device (SCD) *Heparin 5000 units SQ BID 3-4 Higher Order ONE of the following medications: *Heparin 5000 units SQ TID *Enoxaparin/Lovenox 40 mg SQ daily (WT < 150 kg, CrCl > 30 mL/min) *Enoxaparin/Lovenox 30 mg SQ daily (WT < 150 kg, CrCl > 10-29 mL/min) *Enoxaparin/Lovenox 30 mg SQ BID (WT < 150 kg, CrCl > 30 mL/min) AND/OR *Sequential Compression Device (SCD) 5 or more Highest Order ONE of the following medications: *Heparin 5000 units SQ TID (Preferred with Epidurals) *Enoxaparin/Lovenox 40 mg SQ daily (WT < 150 kg, CrCl > 30 mL/min) *Enoxaparin/Lovenox 30 mg SQ daily (WT < 150 kg, CrCl > 10-29 mL/min) *Enoxaparin/Lovenox 30 mg SQ BID (WT < 150 kg, CrCl > 30 mL/min) AND *Sequential Compression Device (SCD) Assessment and Plan - Plan Mr. Garcia is a pleasant 77 year old male with a history of previous CVA who presented to the ED due to confusion and dysarthria. Patient's symptoms resolved within one hour of onset of his symptoms, by the time he came to the hospital. TPA was not administered. Probable Breakthrough seizure - Appreciate neurology input. - EEG and dilantin level pending. MRI ordered by neurology. - Resume Aspirin. Hyperlipidemia - Continue Lipitor 40mg QHS. Full code. Heparin SQ. [facility] ([facility]). However, later we noticed Dr. Sanchez is the PCP and should be the admitting physician.
[2018-05-01] MEDS: Heparin - SQ 10,000 UNITS/ML Vial SQ SCH (21:17)
[2018-05-01] MEDS: Fosphenytoin Inj 200 MGPE in Sodium Chlor 0.9% Inj 50 ML IV.SIG SCH (21:23)
[2018-05-01 23:03] LABS: Bilirubin,Urine Negative (Negative); Clarity,Urine Clear (Clear); Color,Urine Yellow (Yellw/Straw); Glucose,Urine (UA) Negative (Negative); Leukocyte Esterase,Urine Negative (Negative); Nitrite,Urine Negative (Negative); Specific Gravity,Urine 1.025 (1.002-1.035); Urobilinogen,Urine 0.2 mg/dL (Less than 2)
[2018-05-01 23:14] LABS: Mucus,Urine Few /lpf (Occasional); Squamous Epithelial Cell,Urine 0-5 /hpf (0-5); WBC,Urine 0-5 /hpf (0-5)
[2018-05-01 23:19] LABS: Amphetamine Screen,Urine Neg (Neg); Barbiturate Screen,Urine Neg (Neg); Cannabinoid Screen,Urine Neg (Neg); Cocaine Screen,Urine Neg (Neg)
[2018-05-01 23:24] LABS: Opiate Screen,Urine Neg (Neg)
[2018-05-02] MEDS: Sod Chloride 0.9% Inj 1,000 ML IV.CONT SCH (06:37)
[2018-05-02] MEDS: Heparin - SQ 10,000 UNITS/ML Vial SQ SCH (08:39)
--- NOTE | 2018-05-02 09:42 | ECHRPT ---
Indication: CONCLUSIONS The left ventricular systolic function is normal with an estimated ejection fraction in the range of 55-60%. Wall thickness is normal. Normal left ventricular size. Normal wall motion. No definite valvular abnormalities. The aortic valve is not well visualized. BP: / HR: Rhythm: Sinus MEASUREMENTS (Male / Female) Normal Values Technical Quality:Good 2D ECHO LV Diastolic Diameter PLAX 4.6 cm 4.2 - 5.9 / 3.9 - 5.3 cm LV Systolic Diameter PLAX 3.1 cm IVS Diastolic Thickness 0.9 cm 0.6 - 1.0 / 0.6 - 0.9 cm LVPW Diastolic Thickness 0.9 cm 0.6 - 1.0 / 0.6 - 0.9 cm LV Relative Wall Thickness 0.4 LVOT Diameter 1.7 cm LA Systolic Diameter LX 3.3 cm 3.0 - 4.0 / 2.7 - 3.8 cm LV Ejection Fraction MOD 4C 57.4 % LV Ejection Fraction 4C AL 60.3 % M-MODE Aortic Root Diameter MM 2.4 cm LA Systolic Diameter MM 3.3 cm LA Ao Ratio MM 1.4 AV Cusp Separation MM 1.9 cm DOPPLER AV Peak Velocity 103.0 cm/s AV Peak Gradient 4.2 mmHg LVOT Peak Velocity 84.4 cm/s LVOT Peak Gradient 2.8 mmHg AV Area Cont Eq pk 1.9 cm MV Area PHT 4.3 cm Mitral E Point Velocity 78.0 cm/s Mitral A Point Velocity 82.9 cm/s Mitral E to A Ratio 0.9 LV E' Lateral Velocity 8.3 cm/s Mitral E to LV E' Lateral Ratio 9.4 LV E' Septal Velocity 7.4 cm/s Mitral E to LV E' Septal Ratio 10.5 FINDINGS LEFT VENTRICLE The left ventricular systolic function is normal with an estimated ejection fraction in the range of 55-60%. Wall thickness is normal. Normal left ventricular size. No regional wall motion abnormalities are present. RIGHT VENTRICLE Normal right ventricular size and systolic function. LEFT ATRIUM The left atrial size is normal. RIGHT ATRIUM The right atrial size is normal. ATRIAL SEPTUM Normal atrial septal thickness without atrial level shunting by limited color doppler interrogation. AORTA The aortic root and proximal ascending aorta are normal in size on limited imaging. MITRAL VALVE Structurally normal mitral valve. No mitral valve stenosis or regurgitation. AORTIC VALVE The aortic valve is not well visualized. TRICUSPID VALVE Structurally normal tricuspid valve. No tricuspid valve stenosis or regurgitation. PULMONARY VALVE The pulmonary valve is not well visualized. VESSELS The inferior vena cava is normal in size. PERICARDIUM No pericardial effusion. Mayco Vaca MD (Electronically Signed) Final Date:02 May 2018 09:41
[2018-05-02] MEDS: Fosphenytoin Inj 200 MGPE in Sodium Chlor 0.9% Inj 50 ML IV.SIG SCH (10:21)
[2018-05-02] MEDS: Aspirin 325 MG Tablet PO SCH (10:22)
--- NOTE | 2018-05-02 10:25 | MR ---
EXAM DATE: 05/02/2018 10:20 AM EDT AGE/SEX: 77 years / Male INDICATIONS: CVA. Seizures. CLINICAL DATA: This is the patient's initial encounter. Patient reports that signs and symptoms have been present for 1 day and indicates a pain score of 0/10. MEDICAL/SURGICAL HISTORY: Hypertension. None. COMPARISON: No prior exams available for comparison. TECHNIQUE: Multiplanar, multisequence examination of the brain was performed without contrast. FINDINGS: MRI of the brain is performed in sagittal, axial and coronal planes. The craniocervical junction and midline structures are unremarkable. Diffusion weighted images demonstrate no abnormality. No acute c ortical infarction, acute hemorrhage, mass effect or midline shift is seen.There is periventricular h yperintensity on the T2 weighted images consistent with small vessel vascular disease significantly m ore than expected in a patient of this age. Posterior fossa structures are unremarkable. There are 2 small areas of microhemorrhage one in the globus pallidus and one in the mathew-white junction in the posterior right temporal region which appear chronic. This is of doubtful clinical significance. CONCLUSION: No evidence of acute intracranial pathology. Chronic ischemic changes as above. Electronically signed by: Yeison Christopher MD 05/02/2018 10:24 AM EDT
--- NOTE | 2018-05-02 15:53 | P.DCO ---
- Physical Therapy Order: Evaluate and treat, Strength and gait training - Home Health Nursing Order: Medical education - Certification I have seen patient Soham Garcia JR on 05/02/18. My clinical findings support the need for the requested home health care services because: medication compliance, and gait strengthening. Deconditioned with increased weakness, Medication compliance is questionable I certify that my clinical findings support that this patient is homebound because: Unsteady gait/balance Attestation/Additional Detail: Patient non compliant with medication, and will benefit from [facility] for medication education and compliance. He will need Pt for gait strengthening.
--- NOTE | 2018-05-02 15:59 | P.DS ---
Date of admission: 05/01/18 15:38 Primary care physician: Man Sanchez DO Brief History from admission: Mr. Garcia is a pleasant 77 year old male who was brought to the hospital as a stroke alert. Approximately two hours prior to arrival, he was in his normal state. Approximately, an hour prior to ED arrival, his significant other noticed patient's speech difficulty. He had some confusion as well. By the time he arrived to the hospital, his symptoms resolved. Neurology was consulted. TPA was not administered. Patient denies any chest pain, shortness of breath, fever , chills. No changes in bowel or bladder habits. PMH: Seizure disorder, CVA, HTN PSH: No previous major surgery Social history: Denies using tobacco, alcohol or illicit drugs. Family history: No history of Alzheimer's or Parkinson's. DS: Summary Hospital Course: Symptoms resolved by time of admission. Neuro consulted, work up negative for acute findings. Echo 55-60% EF He is non complaints with seizure medications. Will be sent home with [facility] PT and nursing. - Time Spent with Patient Total time spent providing and/or coordinating discharge services: 30 Less than 30 minutes - Quality: AMI Clinical Trial Participant: No - Quality: Stroke Last date observed well: 05/01/18 Last time observed well: 14:00 Symptom Onset Unknown: No - Quality: VTE Is this test being ordered to rule out VTE?: No Deep Vein Thrombosis/Pulmonary Embolism Present on Admission: No Exam Vital signs: Vital Signs 05/01/18 15:59 05/01/18 16:31 05/01/18 17:43 Temperature Pulse Rate 74 72 Respiratory Rate 16 16 Blood Pressure 149/79 H 149/70 H Pulse Oximetry 100 100 95 05/01/18 20:00 05/01/18 20:06 05/02/18 00:00 Temperature 97.3 F L 97.3 F L Pulse Rate 65 68 Respiratory Rate 20 18 Blood Pressure 152/70 H 123/60 Pulse Oximetry 100 99 100 05/02/18 04:00 05/02/18 07:27 05/02/18 07:49 Temperature 97.9 F 97.2 F L Pulse Rate 67 76 Respiratory Rate 18 20 Blood Pressure 143/71 H 144/73 H Pulse Oximetry 98 100 99 05/02/18 08:00 05/02/18 11:06 05/02/18 15:28 Temperature 96.8 F L 97 F L Pulse Rate 74 65 68 Respiratory Rate 20 20 Blood Pressure 152/78 H 148/76 H Pulse Oximetry 97 95 Intake & Output 05/01/18 05/02/18 05/02/18 18:59 06:59 18:59 Intake Total 100 / 100 876 / 876 54 / 54 Output Total 600 / 600 Balance 100 / 100 276 / 276 54 / 54 Weight 73.2 kg 33.248 kg Intake: IV 100 / 100 876 / 876 54 / 54 NS Inj 1,000 ML @ 70 mls/hr IV. 822 / 822 CONT .[id number] BOBBY Rx#: [id number] Cerebyx Inj 200 MGPE In NS Inj 54 / 54 54 / 54 50 ML @ 216 mls/hr IV.SIG Q12HR BOBBY Rx#:[id number] Cerebyx Inj 1,000 MGPE In NS 100 / 100 Inj 50 ML @ 280 mls/hr IV.SIG ONCE ONE Rx#:[id number] Oral 0 / 0 Output: Urine 600 / 600 Other: Date of Last Bowel Movement 04/30/18 Weight On Admission 33.248 kg - Constitutional no acute distress - Routine HEENT Exam Eye: Present: PERRL ENT: Present: mucous membranes moist - Routine Neck Exam Present: supple - Routine Respiratory Exam Present: CTA bilaterally - Routine Cardiovascular Exam Present: S1, S2 - Routine Abdominal Exam Present: soft, normoactive bowel sounds - Routine Skin Exam Present: dry, warm - Routine Neurological Exam Present: alert, oriented X3 Results Procedures completed during hospitalization: n/a Labs on day of discharge: Labs from last 24 hours 05/01/18 05/01/18 05/01/18 22:45 22:45 17:30 PT INR APTT Total Bilirubin Alkaline Phosphatase Troponin I Total Protein Vitamin B12 TSH Urine Color Yellow Yellow Urine Clarity Clear Clear Urine pH 6.0 6.0 Ur Specific [place] 1.025 Less/equal 1.005 Urine Protein Negative Negative Urine Glucose (UA) Negative Negative Urine Ketones Negative Negative Urine Occult Blood Negative Trace Urine Nitrate Negative Negative Urine Bilirubin Negative Negative Urine Urobilinogen 0.2 1.0 Ur Leukocyte Esterase Negative Negative Urine RBC 0-3 Urine WBC 0-5 0-5 Ur Squamous Epith Cells 0-5 0-5 Urine Mucus Few H Micro UA Comment Culture not ind Culture not ind Ur Microscopic Review Microscopic reviewed Microscopic reviewed Urine Culture Comments Culture not ind Culture not ind Urine Opiates Screen Neg Ur Barbiturates Screen Neg Phenytoin Ur Amphetamines Screen Neg U Benzodiazepines Scrn Neg Urine Cocaine Screen Neg U Cannabinoids Screen Neg Blood Type Blood Type Recheck Antibody Screen 05/01/18 05/01/18 05/01/18 15:28 15:28 15:28 PT 11.4 INR 1.1 APTT 26.2 Total Bilirubin 0.2 Alkaline Phosphatase 85 Troponin I Less than 0.02 L Total Protein 8.0 Vitamin B12 TSH 1.720 Urine Color Urine Clarity Urine pH Ur Specific [place] Urine Protein Urine Glucose (UA) Urine Ketones Urine Occult Blood Urine Nitrate Urine Bilirubin Urine Urobilinogen Ur Leukocyte Esterase Urine RBC Urine WBC Ur Squamous Epith Cells Urine Mucus Micro UA Comment Ur Microscopic Review Urine Culture Comments Urine Opiates Screen Ur Barbiturates Screen Phenytoin Ur Amphetamines Screen U Benzodiazepines Scrn Urine Cocaine Screen U Cannabinoids Screen Blood Type A Positive Blood Type Recheck Required Antibody Screen Negative 05/01/18 15:25 PT INR APTT Total Bilirubin Alkaline Phosphatase Troponin I Total Protein Vitamin B12 283 TSH Cancelled Urine Color Urine Clarity Urine pH Ur Specific [place] Urine Protein Urine Glucose (UA) Urine Ketones Urine Occult Blood Urine Nitrate Urine Bilirubin Urine Urobilinogen Ur Leukocyte Esterase Urine RBC Urine WBC Ur Squamous Epith Cells Urine Mucus Micro UA Comment Ur Microscopic Review Urine Culture Comments Urine Opiates Screen Ur Barbiturates Screen Phenytoin 13.5 Ur Amphetamines Screen U Benzodiazepines Scrn Urine Cocaine Screen U Cannabinoids Screen Blood Type Blood Type Recheck Antibody Screen - Impressions ITS Impressions Chest X-Ray 05/01/18 14:57 CONCLUSION: No acute cardiopulmonary disease. Head CT 05/01/18 14:57 CONCLUSION: 1. Stable appearance of the brain. No acute findings. Report was called by [Dr. Reed to Dr. King at 3:06 PM on May 01, 2018. ] Head CTA 05/01/18 14:57 CONCLUSION: 1. There is nonvisualization of the left anterior communicating artery. No evidence of aneurysm or dissection. The remainder of the vasculature appears normal. Neck CTA 05/01/18 14:57 CONCLUSION: 1. There is minimal calcific plaquing of the bilateral carotid arteries without evidence for hemodynamically significant stenosis or occlusion. Head MRI 05/02/18 00:00 CONCLUSION: No evidence of acute intracranial pathology. Chronic ischemic changes as above. Discharge Plan - Discharge Disposition Patient Disposition: /Home Health Service - Discharge Condition Condition: Good - Discharge Order Discharge Orders: Discharge Order (Routine); Ordered 05/02/18 Ordered By: Patricia Magallanes - Discharge Details Anticipated Discharge Date: 05/02/18 - Physicians Team Primary Care Provider: Man Sanchez Attending Provider: Vladimir Owusu
--- NOTE | 2018-05-03 00:42 | ECG ---
Date Performed: 05/01/2018 Time Performed: 16:22:06 PTAGE: 77 years EKG: Sinus rhythm LOW QRS VOLTAGE IN EXTREMITY LEADS BORDERLINE ECG PREVIOUS TRACING : 02/10/2016 03.37 Since the previous tracing, no significant change noted DOCTOR: James Alicea Interpretating Date/Time 05/03/2018 00:41:56
--- NOTE | 2018-05-03 09:47 | MG ---
cc: Mariangel Moses MD DATE: 05/03/18. EEG NUMBER: [id number]. REFERRING PHYSICIAN: CLINICAL HISTORY: In room 8302. Awake, drowsy, asleep, only with photic stimulation. Last EEG 12/28/2006, showed normal findings. MRI, nothing acute. Chronic ischemic changes. A 77-year-old man admitted with change in mental status, emesis, history of seizures, on Cerebyx and heparin currently. DESCRIPTION OF THE RECORD: Some mild slowing of theta frequency, 5-6 Hz. Noted that he is snoring, possibly asleep. Overall, symmetrical slowing noted. Some delta waves of sleep noted. Photic stimulation with minimal driving response. No epileptiform features. IMPRESSION: Mild slowing of the background may be related to sleep state found versus encephalopathic process. Clinical correlation. MD SHERRIE Mensah/susan/alena , 07:48 AM , 07:53 AM
== END 2018-05-02 16:25 | disposition home health service (06) ==
LOC: PHED 14:56 → INTOOBSV 15:38 → PHEDA 15:38 → PH3 18:13
PROVIDERS: ADMIT Hospitalist; ATTEND Hospitalist

== ENCOUNTER 2018-06-12 17:18 | Observation (INO) ==
[2018-06-12] MEDS ORDERED: Sod Chloride 0.9% Inj 1,000 ML IV.SIG ONE (18:10)
--- NOTE | 2018-06-12 18:17 | ED ---
HPI General Chief complaint: Extremity Injury, Lower Stated complaint: Rt Foot Numbness/Pain Time Seen by Provider: 06/12/18 17:54 Source: patient, family and RN notes reviewed Mode of arrival: ambulatory Limitations: no limitations History of Present Illness HPI narrative: 77-year-old male presents to the emergency department for evaluation of dizziness and right foot numbness. Patient states that he has been dizzy since his last admission last month. The dizziness is with movement , relieved with sitting still. He states it comes and goes. While lying in the bed, he denies any dizziness. He has no chest pain at this time. Patient states that he has been having right foot pain for approximately 3 weeks. He has no pain at this time. However, at approximately 4 PM, he states his entire foot went numb. He states that the feeling is coming back at this time. Patient denies any weakness. He has slurred speech which his family member states is chronic for him. He does have history of CVA, seizures, hypertension , hyperlipidemia. He is on Plavix. Patient denies any history of CHF. He does state that he fell 3 days ago. He states he was so dizzy that he fell, hitting his night stand. Upon review of previous records, he was admitted the beginning of April for TIA, possible seizure. Patient is a poor historian. Location: right and lower extremity Radiation: non-radiation Severity: moderate Pain Consistency: now resolved Relieving factors: none Exacerbating factors: none Associated symptoms: Reports other (dizziness) Related Data Home Medications Medication Instructions Recorded Confirmed clopidogrel 75 mg PO DAILY 05/01/18 06/12/18 enalapril maleate 20 mg PO DAILY 05/01/18 06/12/18 montelukast 10 mg PO HS 05/01/18 06/12/18 phenytoin sodium extended 200 mg PO BID 06/12/18 06/12/18 simvastatin 40 mg PO QPM 06/12/18 06/12/18 Allergies Allergy/AdvReac Type Severity Reaction Status Date / Time No Known Allergies Allergy Unverified 06/12/18 17:44 Review of Systems ROS: all other systems reviewed are negative [facility] Social History Social History Substance History: No History of Abuse Second Hand Smoke Exposure: No Smoking Status: Former smoker How Often Do You Have a Drink Containing Alcohol: Monthly or less Recent Travel in [facility] within the Last 8 Weeks: No Recent Out of Country Travel within the Last 8 Weeks: No Immunization History Tetanus Immunization: Unsure Exam Narrative Exam Narrative: GENERAL: Well-nourished, well-developed male patient, afebrile. Atraumatic. SKIN: Focused skin assessment warm/dry. HEAD: Normocephalic. Atraumatic. ENT: Mucosa pink and moist. No erythema or exudates. No uvular edema. No uvular , palatal, or tonsillar deviation. Airway patent. Nasal turbinates appear normal without nasal blood, purulent drainage or septal hematoma. Bilateral tympanic membranes clear without erythema or perforation. EYES: No scleral icterus. No injection or drainage. NECK: Supple, trachea midline. No JVD or lymphadenopathy. CARDIOVASCULAR: Regular rate and rhythm without murmurs, gallops, or rubs. Bilateral radial and pedal pulses are 2+. RESPIRATORY: Breath sounds equal bilaterally. No accessory muscle use. Lung sounds are clear to auscultation peer GASTROINTESTINAL: Abdomen soft, non-tender, nondistended. MUSCULOSKELETAL: No cyanosis, or edema. Bilateral upper extremity and lower extremity strength 5/5. All extremities are neurovascularly intact. BACK: Nontender without obvious deformity. No CVA tenderness. NEUROLOGICAL: Awake and alert. Cranial nerves II through XII intact. Motor and sensory grossly within normal limits. Five out of 5 muscle strength in all muscle groups. Speech is slightly slurred. Finger to nose is normal bilaterally. Heel to avelar is normal bilaterally. Course Initial Documented Vital Signs Temperature 97.8 F 06/12/18 17:41 Pulse Rate 82 06/12/18 17:41 Respiratory Rate 16 06/12/18 17:41 Blood Pressure 154/68 H 06/12/18 17:41 Pulse Oximetry 97 06/12/18 17:41 Last Documented Vital Signs Temperature 97.8 F 06/12/18 17:41 Pulse Rate 78 06/12/18 20:28 Respiratory Rate 18 06/12/18 20:28 Blood Pressure 133/81 06/12/18 20:28 Pulse Oximetry 95 06/12/18 20:28 Medical Decision Making KALI Attestation KALI supervised visit: Yes Attestation: I, Dr. Swift, have reviewed the advance practice practitioner's documentation and am in agreement, met with the patient face to face, made the diagnosis, and the medical decision making was done by me. *My assessment and Findings: Patient is a 77-year-old male who presented with complaint of dizziness today with right foot paresthesias that abated prior to arrival. He is otherwise neurologically intact. Imaging and labs are relatively unremarkable with the exception of his phenytoin level which was 38. I spoke with poison control who recommended that he have the phenytoin level checked every 4 hours until it peaks and has declined twice in addition to regular neuro checks. He will be admitted for further evaluation and management. MDM Narrative Medical decision making narrative: 77-year-old male presents to the emergency for evaluation of dizziness, right foot numbness. IV access is obtained. CBC, CMP, CK, troponin, PTT, PT/INR, dilantin level, UA ordered and pending. Chest x -ray, X-ray of the right foot, CT of the brain are ordered and pending. Patient is given normal saline 1 L IV bolus, orthostatic vital signs are ordered. EKG shows SR with occasional PVC. CBC shows no acute abnormality. CMP shows BUN 20. CK is 139. Troponin is less than 0.02. PTT is 25.4. PT/INR is 12.1/ 1.2. UA is pending. Dilantin level is 38.4. Chest x-ray shows no focal consolidation, tortuous aorta. X-ray of the right foot shows no acute bony abnormality. Ct of the brain no acute findings, stable chronic white matter ischemic changes. My attending physician, Dr. Swift, notified poison control who recommends neuro checks, recheck Dilantin level every 4 hours. Hospitalist is paged for admission. Medical Screen Exam Complete: Yes Emergency Medical Condition: Yes Medical Records Medical records reviewed: Yes I reviewed the patient's medical records. Patient was admitted on May 01, 2018 and discharged on May 02, 2018 for possible TIA versus seizure. Chest x-ray showed no acute cardiopulmonary disease. CT of the head showed no acute findings. CTA of the head showed nonvisualization of the left anterior communicating artery, no evidence of aneurysm or dissection, the remainder the vasculature appears normal. Neck CTA showed minimal calcific plaquing of the bilateral carotid arteries without evidence for hemodynamically significant stenosis or occlusion. MRI of the head showed no evidence of acute intracranial pathology, chronic ischemic changes as above. Lab Data Result diagrams: 06/12/18 19:10 06/12/18 19:10 Lab Results 10/06/12/18 06/12/18 Range/Units 18:21 19:10 19:10 CBC w Diff Auto diff final WBC 4.6 (4.0-11.0) th/mm3 RBC 3.93 L (4.50-5.90) mil/mm3 Hgb 12.2 L (13.0-17.0) gm/dL Hct 36.4 L (39.0-51.0) % MCV 92.7 (80.0-100.0) fL MCH 31.0 (27.0-34.0) pg MCHC 33.5 (32.0-36.0) % RDW 12.3 (11.6-17.2) % Plt Count 210 (150-450) th/mm3 MPV 7.6 (7.0-11.0) fL Neut % (Auto) 53.9 (16.0-70.0) % Lymph % (Auto) 33.2 (9.0-44.0) % [place] % (Auto) 9.2 H (0.0-8.0) % Eos % (Auto) 0.9 (0.0-4.0) % Baso % (Auto) 2.8 H (0.0-2.0) % Neut # (Auto) 2.6 (1.8-7.7) th/mm3 Lymph # (Auto) 1.5 (1.0-4.8) th/mm3 [place] # (Auto) 0.4 (0.0-0.9) th/mm3 Eos # (Auto) 0.0 (0.0-0.4) th/mm3 Baso # (Auto) 0.1 (0.0-0.2) th/mm3 WBC Differential . Differential Comment . PT 12.1 H (9.8-11.6) sec INR 1.2 Ratio APTT 25.4 (24.3-30.1) sec Sodium (136-145) meq/L Potassium (3.5-5.1) meq/L Chloride (98-107) meq/L Carbon Dioxide (21.0-32.0) meq/L Anion Gap (5-15) meq/L BUN (7-18) mg/dL Creatinine (0.60-1.30) mg/dL Estimated GFR (>89) mL/min POC Glucose 108 (68-110) mg/dl Random Glucose (74-106) mg/dL Calcium (8.5-10.1) mg/dL Total Bilirubin (0.2-1.0) mg/dL AST (15-37) U/L ALT (12-78) U/L Alkaline Phosphatase (45-117) U/L Total Creatine Kinase (39-308) U/L CK-MB (CK-2) (0.5-3.6) ng/mL Troponin I (0.02-0.05) ng/mL Total Protein (6.4-8.2) g/dL Albumin (3.4-5.0) g/dL Phenytoin (10.0-20.0) mcg/mL 06/12/18 Range/Units 19:10 CBC w Diff WBC (4.0-11.0) th/mm3 RBC (4.50-5.90) mil/mm3 Hgb (13.0-17.0) gm/dL Hct (39.0-51.0) % MCV (80.0-100.0) fL MCH (27.0-34.0) pg MCHC (32.0-36.0) % RDW (11.6-17.2) % Plt Count (150-450) th/mm3 MPV (7.0-11.0) fL Neut % (Auto) (16.0-70.0) % Lymph % (Auto) (9.0-44.0) % [place] % (Auto) (0.0-8.0) % Eos % (Auto) (0.0-4.0) % Baso % (Auto) (0.0-2.0) % Neut # (Auto) (1.8-7.7) th/mm3 Lymph # (Auto) (1.0-4.8) th/mm3 [place] # (Auto) (0.0-0.9) th/mm3 Eos # (Auto) (0.0-0.4) th/mm3 Baso # (Auto) (0.0-0.2) th/mm3 WBC Differential Differential Comment PT (9.8-11.6) sec INR Ratio APTT (24.3-30.1) sec Sodium 135 L (136-145) meq/L Potassium 4.1 (3.5-5.1) meq/L Chloride 100 (98-107) meq/L Carbon Dioxide 26.8 (21.0-32.0) meq/L Anion Gap 8 (5-15) meq/L BUN 20 H (7-18) mg/dL Creatinine 1.20 (0.60-1.30) mg/dL Estimated GFR 71 L (>89) mL/min POC Glucose (68-110) mg/dl Random Glucose 95 (74-106) mg/dL Calcium 8.1 L (8.5-10.1) mg/dL Total Bilirubin 0.3 (0.2-1.0) mg/dL AST 20 (15-37) U/L ALT 19 (12-78) U/L Alkaline Phosphatase 80 (45-117) U/L Total Creatine Kinase 139 (39-308) U/L CK-MB (CK-2) Less than 1.0 (0.5-3.6) ng/mL Troponin I Less than 0.02 L (0.02-0.05) ng/mL Total Protein 8.2 (6.4-8.2) g/dL Albumin 3.5 (3.4-5.0) g/dL Phenytoin 38.4 H* (10.0-20.0) mcg/mL Imaging Data Radiologist's impression: Chest X-Ray 06/12/18 18:10 CONCLUSION: No focal consolidation. Tortuous aorta. Head CT 06/12/18 18:10 CONCLUSION: 1. No acute findings. Stable chronic white matter ischemic changes. . Foot X-Ray 06/12/18 18:21 CONCLUSION: No acute bony abnormality. Discharge Plan Discharge Disposition Patient Disposition: 30 Still Patient Discharge Details Diagnosis: Dilantin toxicity, Dizziness Physicians Team ED Provider: Rachel Swift ED Midlevel Provider: Claudia Castellanos Primary Care Provider: Man Sanchez Attending Provider: Jelena Ramirez Status ED Status: Admitted Observation Patient
--- NOTE | 2018-06-12 19:18 | XR ---
EXAM DATE: 06/12/2018 6:10 PM EDT AGE/SEX: 77 years / Male INDICATIONS: Short of breath. CLINICAL DATA: This is the patient's initial encounter. Patient reports that signs and symptoms have been present for 1 day and indicates a pain score of 0/10. MEDICAL/SURGICAL HISTORY: None. None. COMPARISON: [facility], CHEST 1V SINGLE AP, 05/01/2018. . FINDINGS: A single AP view of the chest demonstrates the lungs to be symmetrically aerated without evidence of mass, infiltrate or effusion. The cardiomediastinal contours are unremarkable. Osseous structures a re intact. CONCLUSION: No focal consolidation. Tortuous aorta. Electronically signed by: Chacorta Ma MD 06/12/2018 7:17 PM EDT
[2018-06-12 19:21] LABS: Baso # (Auto) 0.1 th/mm3 (0.0-0.2); Baso % (Auto) 2.8 % (0.0-2.0); Eos % (Auto) 0.9 % (0.0-4.0); Hematocrit 36.4 % (39.0-51.0); Hemoglobin 12.2 gm/dL (13.0-17.0); Lymph # (Auto) 1.5 th/mm3 (1.0-4.8); Lymph % (Auto) 33.2 % (9.0-44.0); Mean Corpuscular HGB Conc 33.5 % (32.0-36.0); Mean Corpuscular Volume 92.7 fL (80.0-100.0); Mean Platelet Volume 7.6 fL (7.0-11.0); Mono # (Auto) 0.4 th/mm3 (0.0-0.9); Mono % (Auto) 9.2 % (0.0-8.0); Neut # (Auto) 2.6 th/mm3 (1.8-7.7); Neut % (Auto) 53.9 % (16.0-70.0); Platelet Count 210 th/mm3 (150-450); Red Blood Count 3.93 mil/mm3 (4.50-5.90); Red Cell Distribution Width 12.3 % (11.6-17.2); White Blood Count 4.6 th/mm3 (4.0-11.0)
--- NOTE | 2018-06-12 19:21 | XR ---
EXAM DATE: 06/12/2018 6:21 PM EDT AGE/SEX: 77 years / Male INDICATIONS: Numbness in right foot infrequent pain in right foot. CLINICAL DATA: This is the patient's initial encounter. Patient reports that signs and symptoms have been present for 1 day and indicates a pain score of 0/10. MEDICAL/SURGICAL HISTORY: None. None. COMPARISON: No prior exams available for comparison. FINDINGS: Bony structures are intact and in normal alignment. Osseous density is normal. Soft tissues are unre markable. No radiopaque foreign bodies seen. CONCLUSION: No acute bony abnormality. Electronically signed by: Chacorta Ma MD 06/12/2018 7:20 PM EDT
[2018-06-12 19:30] LABS: Chloride 100 meq/L (98-107); Potassium 4.1 meq/L (3.5-5.1); Sodium 135 meq/L (136-145)
[2018-06-12 19:33] LABS: Albumin 3.5 g/dL (3.4-5.0); Anion Gap 8 meq/L (5-15); Blood Urea Nitrogen 20 mg/dL (7-18); Calcium 8.1 mg/dL (8.5-10.1); Carbon Dioxide 26.8 meq/L (21.0-32.0); Glucose,Random 95 mg/dL (74-106)
[2018-06-12 19:35] LABS: Activated Partial Thrombo Time 25.4 sec (24.3-30.1); INR 1.2 Ratio; Prothrombin Time 12.1 sec (9.8-11.6)
[2018-06-12 19:36] LABS: Alanine Aminotransferase 19 U/L (12-78); Aspartate Aminotransferase 20 U/L (15-37); Glomerular Filtration Rate 71 mL/min (>89)
--- NOTE | 2018-06-12 19:36 | CT ---
EXAM DATE: 06/12/2018 6:32 PM EDT AGE/SEX: 77 years / Male INDICATIONS: Dizziness. CLINICAL DATA: This is the patient's initial encounter. Patient reports that signs and symptoms have been present for 2 days and indicates a pain score of 0/10. MEDICAL/SURGICAL HISTORY: Cerebrovascular disease. Hypertension. Seizures. None. RADIATION DOSE: 52.63 CTDI (mGy) COMPARISON: [facility], CT HEAD W/O CONTRAST, 05/01/2018. . TECHNIQUE: CT of the head without contrast. Using automated exposure control and adjustment of the mA and/or kV according to patient size, radiation dose was kept as low as reasonably achievable to ob tain optimal diagnostic quality images. DICOM format image data is available electronically for revi ew and comparison. FINDINGS: Cerebrum: The ventricles are normal for age. No evidence of midline shift, mass lesion, hemorrhage or acute infarction. No extraaxial fluid collections are seen. Posterior Fossa: The cerebellum and brainstem are intact. The 4th ventricle is midline. The cerebe llopontine angle is unremarkable. Extracranial: The visualized portion of the orbits is intact. Skull: The calvaria is intact. No evidence of skull fracture. CONCLUSION: 1. No acute findings. Stable chronic white matter ischemic changes. . Electronically signed by: Chacorta Ma MD 06/12/2018 7:34 PM EDT
[2018-06-12 19:38] LABS: Total Protein 8.2 g/dL (6.4-8.2)
[2018-06-12 19:39] LABS: Alkaline Phosphatase 80 U/L (45-117); Creatine Kinase 139 U/L (39-308)
[2018-06-12 19:49] LABS: Phenytoin (Dilantin) 38.4 mcg/mL (10.0-20.0)
[2018-06-12] MEDS ORDERED: Acetaminophen 325 MG Tablet PO PRN (20:21)
[2018-06-12] MEDS ORDERED: Bisacodyl 10 MG Supp RECTAL PRN (20:21)
[2018-06-12] MEDS: Sod Chloride 0.9% Inj 1,000 ML IV.CONT SCH (20:35)
[2018-06-12] MEDS: Heparin - SQ 10,000 UNITS/ML Vial SQ SCH (21:46)
[2018-06-12] MEDS: Senna/Docusate Sodium 8.6/50 MG Tablet PO SCH (21:46)
[2018-06-13 06:25] LABS: Bilirubin,Urine Negative (Negative); Clarity,Urine Clear (Clear); Color,Urine Yellow (Yellw/Straw); Glucose,Urine (UA) Negative (Negative); Leukocyte Esterase,Urine Negative (Negative); Nitrite,Urine Negative (Negative); Urobilinogen,Urine 0.2 mg/dL (Less than 2)
[2018-06-13 06:33] LABS: Collection Time,Urine 600 hours
[2018-06-13 06:34] LABS: Squamous Epithelial Cell,Urine 0-5 /hpf (0-5)
[2018-06-13 07:11] LABS: Alanine Aminotransferase 15 U/L (12-78); Albumin 2.8 g/dL (3.4-5.0); Alkaline Phosphatase 65 U/L (45-117); Anion Gap 6 meq/L (5-15); Aspartate Aminotransferase 15 U/L (15-37); Blood Urea Nitrogen 15 mg/dL (7-18); Calcium 7.8 mg/dL (8.5-10.1); Carbon Dioxide 26.3 meq/L (21.0-32.0); Chloride 108 meq/L (98-107); Glomerular Filtration Rate Greater Than 89 mL/min (>89); Glucose,Random 90 mg/dL (74-106); Potassium 4.3 meq/L (3.5-5.1); Sodium 140 meq/L (136-145); Total Protein 6.7 g/dL (6.4-8.2)
[2018-06-13 07:16] LABS: Phenytoin (Dilantin) 30.9 mcg/mL (10.0-20.0)
[2018-06-13] MEDS: Sod Chloride 0.9% Inj 1,000 ML IV.CONT SCH ×2 (08:17→16:41)
[2018-06-13] MEDS: Heparin - SQ 10,000 UNITS/ML Vial SQ SCH ×2 (08:17→21:04)
[2018-06-13] MEDS: Senna/Docusate Sodium 8.6/50 MG Tablet PO SCH ×2 (08:18→21:03)
--- NOTE | 2018-06-13 10:33 | P.HPIM ---
History of Present Illness Primary Care Physician: Man Sanchez DO Chief Complaint: dizziness History of Present Illness: patient is a 77 y/o male with history of seizure disorder, CVA, hypertension, dyslipidemia who presented to ER with dizziness. he says that he's been feeling dizzy for the past three days. he fell about three days ago. he says that he had some on and off nausea but with no emesis. he denies any chest pain or sob. Review of Systems All other systems reviewed negative except as stated in [facility] - History History Provided By: Patient - Medical History Medical History: Medical History (Last Reviewed 06/13/18 @ 10:30 by Obie Sparks MD) History of CVA (cerebrovascular accident) (Acute) Hx of tonic-clonic seizures (Acute) Hx of primary hypertension (Acute) History of high cholesterol (Acute) - Surgical History Surgical History: Surgical History (Last Reviewed 06/13/18 @ 10:30 by Obie Sparks MD) No history of previous surgery (Acute) - Family History Family History: Family History (Last Updated 06/13/18 @ 10:31 by Obie Sparks MD) Other CVA (cerebral vascular accident) - Tobacco History Second Hand Smoke Exposure: No Tobacco Use In Past 30 Days: No Smoking Status: Former smoker Tobacco Type: Cigarettes - Alcohol History How Often Do You Have a Drink Containing Alcohol: Monthly or less - Substance Use History Substance History: No History of Abuse - Travel History Recent Travel in the [place] Within the Last 8 Weeks: No Recent Travel Out of the Country Within the Last 8 Weeks: No - Immunization History Tetanus Immunization: Unsure Medications and Allergies Active Medications: Active Medications Acetaminophen (Tylenol) 650 mg PO Q4H PRN PRN Reason: Temp > 100.4 Al Hydroxide/Mg Hydroxide (Milk Of Magnesia Liq) 30 ml PO Q12H PRN PRN Reason: Mild Constipation Bisacodyl (Dulcolax Supp) 10 mg RECTAL DAILY PRN PRN Reason: SEVERE CONSITIPATION Clopidogrel Bisulfate (Plavix) 75 mg PO DAILY [facility] Last Admin: 06/13/18 08:18 Dose: 75 mg Enalapril Maleate (Vasotec) 20 mg PO DAILY [facility] Last Admin: 06/13/18 08:18 Dose: 20 mg Heparin Sodium (Porcine) (Heparin Inj) 5,000 units SQ Q12H [facility] Last Admin: 06/13/18 08:17 Dose: 5,000 units Sodium Chloride (Ns Inj) 1,000 mls @ 100 mls/hr IV.CONT .Q10H [facility] Last Admin: 06/13/18 08:17 Dose: 100 mls/hr Lactulose (Lactulose Liq) 30 ml PO DAILY PRN PRN Reason: SEVERE CONSITIPATION Ondansetron HCl (Zofran Inj) 4 mg IV.PUSH Q6H PRN PRN Reason: NAUSEA OR VOMITING Pravastatin Sodium (Pravachol) 80 mg PO HS [facility] Senna/Docusate Sodium (Ni-Colace) 1 tab PO BID [facility] Last Admin: 06/13/18 08:18 Dose: Not Given Sennosides (Senokot) 17.2 mg PO Q12H PRN PRN Reason: Moderate Constipation Sodium Chloride (Ns Flush) 2 ml IV.FLUSH PRN PRN PRN Reason: FLUSH AFTER USING IV ACCESS Allergies Allergy/AdvReac Type Severity Reaction Status Date / Time No Known Allergies Allergy Unverified 06/12/18 17:44 Home Medications Medication Instructions Recorded Confirmed Type clopidogrel 75 mg PO DAILY 05/01/18 06/12/18 History enalapril maleate 20 mg PO DAILY 05/01/18 06/12/18 History montelukast 10 mg PO HS 05/01/18 06/12/18 History phenytoin sodium extended 200 mg PO BID 06/12/18 06/12/18 History simvastatin 40 mg PO QPM 06/12/18 06/12/18 History Exam Vital signs: Vital Signs 06/12/18 17:41 06/12/18 18:50 06/12/18 19:29 Temperature 97.8 F Pulse Rate 82 84 77 Respiratory Rate 16 18 Blood Pressure 154/68 H 148/77 H Pulse Oximetry 97 95 95 06/12/18 20:28 06/12/18 21:26 06/13/18 00:00 Temperature 98.1 F 98.3 F Pulse Rate 78 58 L 76 Respiratory Rate 18 16 16 Blood Pressure 133/81 150/93 H 147/83 H Pulse Oximetry 95 98 98 06/13/18 04:00 06/13/18 08:00 Temperature 98.2 F 97.7 F Pulse Rate 80 82 Respiratory Rate 16 16 Blood Pressure 156/95 H 140/73 Pulse Oximetry 97 97 Intake & Output 06/12/18 06/13/18 06/13/18 18:59 06:59 18:59 Intake Total 2240 / 2240 Output Total 300 / 300 Balance 1940 / 1940 Weight 68.7 kg Intake: IV 1999 / 1999 NS Inj 1,000 ML @ 100 mls/hr IV 1000 / 1000 .CONT .Q10H [facility] Rx#:[id number] NS Inj 1,000 ML @ Wide Open IV. 1000 / 1000 SIG [facility] Rx#:[id number] Oral 240 / 240 Output: Urine 300 / 300 Other: # Voids 2 - Constitutional no acute distress - Routine HEENT Exam Eye: Present: PERRL - Routine Neck Exam Present: supple - Routine Respiratory Exam Present: CTA bilaterally - Routine Cardiovascular Exam Present: RRR - Routine Abdominal Exam Present: soft - Routine Extremities Exam Comments: no pedal edema. - Routine Neurological Exam Present: alert, oriented X3 Results - Labs CBC & Chem 7: 06/12/18 19:10 06/13/18 06:00 Labs: Short CBC 06/12/18 Range/Units 19:10 WBC 4.6 (4.0-11.0) th/mm3 Hgb 12.2 L (13.0-17.0) gm/dL Hct 36.4 L (39.0-51.0) % Plt Count 210 (150-450) th/mm3 [facility] 06/12/18 06/13/18 19:10 06:00 Sodium 135 L 140 Potassium 4.1 4.3 Chloride 100 108 H D Carbon Dioxide 26.8 26.3 BUN 20 H 15 Creatinine 1.20 0.92 Calcium 8.1 L 7.8 L Cardiac Enzymes 06/12/18 Range/Units 19:10 Total Creatine Kinase 139 (39-308) U/L CK-MB (CK-2) Less than 1.0 (0.5-3.6) ng/mL Troponin I Less than 0.02 L (0.02-0.05) ng/mL Liver Function 06/12/18 06/13/18 Range/Units 19:10 06:00 Total Bilirubin 0.3 0.5 (0.2-1.0) mg/dL AST 20 15 (15-37) U/L ALT 19 15 (12-78) U/L Alkaline Phosphatase 80 65 (45-117) U/L Albumin 3.5 2.8 L D (3.4-5.0) g/dL Urine 06/13/18 Range/Units 06:00 Urine Color Yellow (Yellw/Straw) Urine Clarity Clear (Clear) Urine pH 6.0 (5.0-8.5) Ur Specific [place] 1.010 (1.002-1.035) Urine Protein Negative (Neg-Trace) mg/dL Urine Glucose (UA) Negative (Negative) mg/dL - Imaging Impressions Chest X-Ray 06/12/18 18:10 CONCLUSION: No focal consolidation. Tortuous aorta. Head CT 06/12/18 18:10 CONCLUSION: 1. No acute findings. Stable chronic white matter ischemic changes. . Foot X-Ray 06/12/18 18:21 CONCLUSION: No acute bony abnormality. Caprini VTE Risk Assessment Caprini VTE Risk Assessment: Moderate/High Risk (score >= 2) Caprini Risk Assessment Model: Point Value = 1 Point Value = 2 Point Value = 3 Point Value = 5 Age 41-60 Minor surgery BMI > 25 kg/m2 Swollen legs Varicose veins or History of unexplained or recurrent spontaneous Oral contraceptives or hormone replacement Sepsis (< 1 month) Serious lung disease, including pneumonia (< 1 month) Abnormal pulmonary function Acute myocardial infarction Congestive heart failure (< 1 month) History of inflammatory bowel disease Medical patient at bed rest Age 61-74 Arthroscopic surgery Major open surgery (> 45 min) Laparoscopic surgery (> 45 min) Malignancy Confined to bed (> 72 hours) Immobilizing plaster cast Central venous access Age >= 75 History of VTE Family history of VTE Factor V Leiden Prothrombin 21126D Lupus anticoagulant Anticardiolipin antibodies Elevated serum homocysteine Heparin-induced thrombocytopenia Other congenital or acquired thrombophilia Stroke (< 1 month) Elective arthroplasty Hip, pelvis, or leg fracture Acute spinal cord injury (< 1 month) Prophylaxis Regimen: Total Risk Factor Score Risk Level Prophylaxis Regimen 0-1 Low Early ambulation 2 Moderate Order ONE of the following: *Sequential Compression Device (SCD) *Heparin 5000 units SQ BID 3-4 Higher Order ONE of the following medications: *Heparin 5000 units SQ TID *Enoxaparin/Lovenox 40 mg SQ daily (WT < 150 kg, CrCl > 30 mL/min) *Enoxaparin/Lovenox 30 mg SQ daily (WT < 150 kg, CrCl > 10-29 mL/min) *Enoxaparin/Lovenox 30 mg SQ BID (WT < 150 kg, CrCl > 30 mL/min) AND/OR *Sequential Compression Device (SCD) 5 or more Highest Order ONE of the following medications: *Heparin 5000 units SQ TID (Preferred with Epidurals) *Enoxaparin/Lovenox 40 mg SQ daily (WT < 150 kg, CrCl > 30 mL/min) *Enoxaparin/Lovenox 30 mg SQ daily (WT < 150 kg, CrCl > 10-29 mL/min) *Enoxaparin/Lovenox 30 mg SQ BID (WT < 150 kg, CrCl > 30 mL/min) AND *Sequential Compression Device (SCD) Assessment and Plan - Plan A/P - Dilantin Toxicity- level is trending down. continue to hold Dilantin and continue to trend- consult PT -history of CVA, hypertension and dyslipidemia; resume home meds. -DVT prophylaxis with subq Heparin. Discussed Condition With: the patient. H&P: Quality - VTE Deep Vein Thrombosis/Pulmonary Embolism Present on Admission: No
--- NOTE | 2018-06-13 14:29 | P.DCO ---
- Physical Therapy Order: Evaluate and treat - Home Health Nursing Order: Medical education, Signs/symptoms of disease process, Medication education-adverse effect, Nursing assessment with vital signs - Case Management Consult Yes - Certification I have seen patient Soham Garcia JR on 06/13/18. My clinical findings support the need for the requested home health care services because: Limited mobility due to disease progression I certify that my clinical findings support that this patient is homebound because: Unsteady gait/balance
--- NOTE | 2018-06-13 18:23 | ECG ---
Date Performed: 06/12/2018 Time Performed: 18:17:26 PTAGE: 77 years EKG: Sinus rhythm WITH OCCASIONAL VENTRICULAR PREMATURE COMPLEXES INFERIOR MYOCARDIAL INFARCTION ABNORMAL ECG PREVIOUS TRACING : 05/01/2018 16.22 Since the previous tracing, no significant change noted DOCTOR: Kee Hendrickson Interpretating Date/Time 06/13/2018 18:22:13
[2018-06-14] MEDS: Sod Chloride 0.9% Inj 1,000 ML IV.CONT SCH ×3 (04:31→22:14)
[2018-06-14] MEDS: Senna/Docusate Sodium 8.6/50 MG Tablet PO SCH ×2 (08:45→21:00)
[2018-06-14] MEDS: Heparin - SQ 10,000 UNITS/ML Vial SQ SCH ×2 (08:46→21:00)
--- NOTE | 2018-06-14 16:59 | P.PNFP ---
Subjective Interval history: Delayed entry, seen earlier Denies CP, SOB Uneventful night reported Results - Labs Result diagrams: 06/12/18 19:10 06/13/18 06:00 Abnormal lab results 06/13/18 06/14/18 06/14/18 Range/Units 19:30 01:30 06:00 Phenytoin 35.8 H* 30.7 H* 30.2 H* (10.0-20.0) mcg/mL Physical Exam Vital signs: Vital Signs 06/13/18 20:00 06/13/18 20:25 06/14/18 00:00 Temperature 97.9 F 96.9 F L Pulse Rate 68 65 Respiratory Rate 20 20 Blood Pressure 143/76 H 108/63 Pulse Oximetry 99 96 99 06/14/18 04:00 06/14/18 05:49 06/14/18 08:00 Temperature 97.8 F 97.1 F L Pulse Rate 76 69 82 Respiratory Rate 20 16 18 Blood Pressure 184/86 H 146/82 H 194/96 H Pulse Oximetry 96 97 96 06/14/18 09:12 06/14/18 12:00 06/14/18 16:00 Temperature 99.4 F 98.2 F Pulse Rate 90 74 Respiratory Rate 18 18 Blood Pressure 188/87 H 139/82 Pulse Oximetry 99 95 100 Intake & Output 06/13/18 06/14/18 06/14/18 18:59 06:59 18:59 Intake Total 2215 / 2215 1240 / 1240 420 / 420 Output Total 350 / 350 1200 / 1200 Balance 1865 / 1865 40 / 40 420 / 420 Weight 69 kg Intake: IV 900 / 900 1000 / 1000 420 / 420 NS Inj 1,000 ML @ 100 mls/hr IV 900 / 900 1000 / 1000 420 / 420 .CONT .Q10H [facility] Rx#:[id number] Oral 480 / 480 240 / 240 Other 835 / 835 Output: Urine 350 / 350 1200 / 1200 Other: Other Intake Source Saline Solution # Voids 2 Date of Last Bowel Movement 06/14/18 # Bowel Movements 1 - Constitutional no acute distress - Routine HEENT Exam ENT: Present: mucous membranes moist - Routine Neck Exam Present: supple - Routine Respiratory Exam Present: CTA bilaterally - Routine Cardiovascular Exam Present: S1, S2 - Routine Abdominal Exam Present: soft, normoactive bowel sounds - Routine Psychiatric Exam Present: cooperative Assessment and Plan - Assessment (1) Dilantin toxicity Code(s): T42.0X1A - Poisoning by hydantoin derivatives, accidental ( unintentional), initial encounter Status: Acute Plan: serial Dilantin levels, monitor trends (2) Hx of primary hypertension Code(s): Z86.79 - Personal history of other diseases of the circulatory system Status: Acute Plan: Monitor, titrate Meds as needed (3) Hx of tonic-clonic seizures Code(s): Z86.69 - Personal history of other diseases of the nervous system and sense organs Status: Acute Plan: No seizure activity, Dilantin on hold - Assessment and Plan Cont to monitor Dilantin, trending down. Likely dc home tomorrow with [facility], Dr Sanchez discussed plane with spouse. (1) Dilantin toxicity Qualifiers: Encounter type: initial encounter Injury intent: accidental or unintentional Qualified Code(s): T42.0X1A - Poisoning by hydantoin derivatives, accidental ( unintentional), initial encounter
[2018-06-15] MEDS: Heparin - SQ 10,000 UNITS/ML Vial SQ SCH ×2 (09:05→20:46)
[2018-06-15] MEDS: Senna/Docusate Sodium 8.6/50 MG Tablet PO SCH ×2 (09:06→20:45)
[2018-06-15] MEDS: Sod Chloride 0.9% Inj 1,000 ML IV.CONT SCH ×2 (13:09→20:46)
--- NOTE | 2018-06-15 13:09 | P.PNFP ---
Subjective Interval history: Adm for toxicity from [facility] and without complaints this AM. Results - Labs Result diagrams: 06/12/18 19:10 06/13/18 06:00 Abnormal lab results 06/14/18 06/15/18 Range/Units 19:25 07:11 Phenytoin 28.9 H 28.1 H (10.0-20.0) mcg/mL Physical Exam Vital signs: Vital Signs 06/14/18 16:00 06/14/18 20:00 06/14/18 20:05 Temperature 98.2 F 97.3 F L Pulse Rate 74 66 Respiratory Rate 18 20 Blood Pressure 139/82 168/81 H Pulse Oximetry 100 98 98 06/15/18 00:00 06/15/18 00:19 06/15/18 04:00 Temperature 96.8 F L 96.8 F L Pulse Rate 72 68 65 Respiratory Rate 20 20 Blood Pressure 168/85 H 160/90 H Pulse Oximetry 98 99 06/15/18 05:50 06/15/18 08:00 06/15/18 09:39 Temperature 97.2 F L Pulse Rate 69 69 Respiratory Rate 18 Blood Pressure 160/85 H Pulse Oximetry 98 97 06/15/18 12:00 Temperature 97.4 F L Pulse Rate 73 Respiratory Rate 18 Blood Pressure 185/88 H Pulse Oximetry 98 Intake & Output 06/14/18 06/15/18 06/15/18 18:59 06:59 18:59 Intake Total 420 / 420 360 / 360 Balance 420 / 420 360 / 360 Weight 69.3 kg Intake: IV 420 / 420 NS Inj 1,000 ML @ 100 mls/hr IV 420 / 420 .CONT .Q10H [facility] Rx#:[id number] Oral 360 / 360 Other: # Voids 3 2 Date of Last Bowel Movement 06/14/18 06/14/18 # Bowel Movements 1 - Constitutional no acute distress - Routine HEENT Exam Head: Present: normocephalic Eye: Present: PERRL ENT: Present: mucous membranes moist - Routine Neck Exam Present: supple, full ROM - Routine Respiratory Exam Present: CTA bilaterally - Routine Cardiovascular Exam Present: RRR, S1, S2 - Routine Abdominal Exam Present: soft, normoactive bowel sounds - Routine Extremities Exam Present: full ROM - Routine Skin Exam Present: intact - Routine Neurological Exam Present: alert, oriented X3 - Detailed Neurological Exam: Coma Scale Eye Opening: Spontaneous Verbal Response: Oriented Motor Response: Obey commands Andi Coma Scale Total: 15 - Routine Psychiatric Exam Present: normal affect Assessment and Plan - Assessment (1) Dilantin toxicity Code(s): T42.0X1A - Poisoning by hydantoin derivatives, accidental ( unintentional), initial encounter Status: Acute Plan: serial Dilantin levels, monitor trends and plan D/C when 25 or less (2) Hx of primary hypertension Code(s): Z86.79 - Personal history of other diseases of the circulatory system Status: Acute Plan: Monitor, titrate Meds as needed (3) Hx of tonic-clonic seizures Code(s): Z86.69 - Personal history of other diseases of the nervous system and sense organs Status: Acute Plan: No seizure activity, Dilantin on hold - Assessment and Plan Cont to monitor Dilantin, trending down. Likely dc home tomorrow with [facility], Dr Sanchez discussed plan with spouse. Discussed Condition With: Patient (1) Dilantin toxicity Qualifiers: Encounter type: initial encounter Injury intent: accidental or unintentional Qualified Code(s): T42.0X1A - Poisoning by hydantoin derivatives, accidental ( unintentional), initial encounter
[2018-06-16 05:24] VITALS: O2SAT 99
[2018-06-16] MEDS: Sod Chloride 0.9% Inj 1,000 ML IV.CONT SCH (05:54)
[2018-06-16 08:53] VITALS: BP 129/73; RESP 16; TEMP 98
[2018-06-16] MEDS: Heparin - SQ 10,000 UNITS/ML Vial SQ SCH (09:44)
[2018-06-16] MEDS: Senna/Docusate Sodium 8.6/50 MG Tablet PO SCH (09:45)
--- NOTE | 2018-06-16 10:52 | P.DS ---
Date of admission: 06/12/18 20:20 Primary care physician: Man Sanchez DO Attending physician on discharge: Man Sanchez Anticipated date of discharge: 06/16/18 Brief History from admission: patient is a 77 y/o male with history of seizure disorder, CVA, hypertension, dyslipidemia who presented to ER with dizziness. he says that he's been feeling dizzy for the past three days. he fell about three days ago. he says that he had some on and off nausea but with no emesis. he denies any chest pain or sob. he was found to have DPH toxicity and DPH held. Patient update on day of discharge: No C/O dizziness as his DPH level is now less than 20 and WNL. DS: Diagnosis - Discharge Diagnosis (1) Dilantin toxicity Status: Acute Diagnosis: Principal (2) Hx of primary hypertension Status: Acute Diagnosis: Secondary (3) Hx of tonic-clonic seizures Status: Acute Diagnosis: Secondary DS: Summary Hospital Course: His weakness and dizziness slowly resolved with holding DPH and his sx have now resolved. I will restart DPH at a lower dose and see him in the office next week and F/U the level. - Time Spent with Patient Total time spent providing and/or coordinating discharge services: Greater than 30 minutes - Quality: AMI Clinical Trial Participant: No - Quality: Stroke Symptom Onset Unknown: No - Quality: VTE Deep Vein Thrombosis/Pulmonary Embolism Present on Admission: No Exam Vital signs: Vital Signs 06/15/18 12:00 06/15/18 15:09 06/15/18 15:56 Temperature 97.4 F L 97.9 F Pulse Rate 73 68 71 Respiratory Rate 18 18 Blood Pressure 185/88 H 154/80 H Pulse Oximetry 98 98 06/15/18 19:00 06/15/18 20:00 06/15/18 23:00 Temperature 97.8 F Pulse Rate 69 65 65 Respiratory Rate 20 Blood Pressure 157/81 H Pulse Oximetry 99 06/16/18 00:00 06/16/18 03:00 06/16/18 04:00 Temperature 97.3 F L 97 F L Pulse Rate 73 71 69 Respiratory Rate 20 20 Blood Pressure 160/89 H 150/85 H Pulse Oximetry 98 99 06/16/18 08:00 Temperature 98.0 F Pulse Rate 76 Respiratory Rate 16 Blood Pressure 129/73 Pulse Oximetry 99 Intake & Output 06/15/18 06/16/18 06/16/18 18:59 06:59 18:59 Intake Total 940 / 940 Balance 940 / 940 Weight 69.4 kg Intake: IV 400 / 400 NS Inj 1,000 ML @ 100 mls/hr IV 400 / 400 .CONT .Q10H [facility] Rx#:[id number] Oral 540 / 540 Other: # Voids 5 4 Date of Last Bowel Movement 06/14/18 # Bowel Movements 0 - Constitutional no acute distress - Routine HEENT Exam Head: Present: normocephalic Eye: Present: normal accommodation ENT: Present: mucous membranes moist - Routine Neck Exam Present: supple, full ROM - Routine Respiratory Exam Present: CTA bilaterally - Routine Cardiovascular Exam Present: RRR, S1, S2 - Routine Abdominal Exam Present: soft, normoactive bowel sounds - Routine Extremities Exam Present: full ROM - Routine Skin Exam Present: intact - Routine Neurological Exam Present: alert, oriented X3 Results Procedures completed during hospitalization: none Labs on day of discharge: Labs from last 24 hours 06/16/18 07:25 Phenytoin 21.5 H - Impressions ITS Impressions Chest X-Ray 06/12/18 18:10 CONCLUSION: No focal consolidation. Tortuous aorta. Head CT 06/12/18 18:10 CONCLUSION: 1. No acute findings. Stable chronic white matter ischemic changes. . Foot X-Ray 06/12/18 18:21 CONCLUSION: No acute bony abnormality. Discharge Plan - Discharge Disposition Patient Disposition: 01 Discharge Home - Discharge Condition Condition: Good - Discharge Order Discharge Orders: Discharge Order (Routine); Ordered 06/16/18 Ordered By: Larry Anderson - Physicians Team Primary Care Provider: Man Sanchez Attending Provider: Man Sanchez
[2018-06-16 11:15] VITALS: PULSE 77
[2018-06-16] MEDS ORDERED: Phenytoin Sodium 100 MG Capsule PO SCH (21:00)
== END 2018-06-16 11:30 | disposition home or self-care (01) ==
LOC: PHEFT 17:18 → PHEDA 17:18 → PH3 21:06
PROVIDERS: ADMIT Family Medicine; ATTEND Family Medicine